=== PATIENT | male | born 1950 | race Caucasian/White ===

== ENCOUNTER → 2017-03-14 | Outpatient (CLI) | payer MEDICARE ==
[2017-03-14 14:32] LABS: BLOOD GAS BASE EXCESS 0.4 mmol/L (-2-2); BLOOD GAS CARBOXYHEMOGLOBIN 1.7 % (0-4); BLOOD GAS HCO3 25 mmol/L (22-26); BLOOD GAS METHEMOGLOBIN 1.3 % (0-2); BLOOD GAS O2 HGB SATURATION 93 % (90-100); BLOOD GAS OXYGEN CONTENT 16.2 Vol % (12.0-20.0); BLOOD GAS PCO2 45 mmHg (38-42); BLOOD GAS PO2 87 mmHg (61-120); BLOOD GAS TOTAL HGB 12.3 G/DL (12.0-16.0); CRITICAL VALUE NO; DRAW SITE RT RADIAL; FIO2 21 %; NUMBER OF ARTERIAL PUNCTURES 1; STAT NO; TEMP CORR TO 98.6; ULNAR PULSE PRESENT
--- NOTE | 2017-03-19 09:43 | RSPPFT ---
DATE OF PROCEDURE: 03/14/17 COMMENTS: Spirometry with FVC of 3.4 predicted 4.7, FEV1 of 2.9 predicted 3.1, FEV1/FVC ratio 86% predicted 67%. Lung volumes are decreased with TLC at 5.0 predicted 7.3. DLCO is 53% of predicted. IMPRESSION: On the basis of the above, patient has a restrictive lung defect with decreased DLCO.
== END ==
LOC: HRSP 13:16
PROVIDERS: ATTEND Internal Medicine Pulmonary Disease
DX: J84.10 Pulmonary fibrosis, unspecified (principal)
CPT/HCPCS: 36600; 82805; 94060; 94620; 94726; 94729

== ENCOUNTER 2017-04-24 11:02 | Inpatient (IN) | payer MEDICARE ==
[~2017-04-24] VITALS: Ht 182.9 cm; Wt 85.4 kg
[2017-04-24 11:18] VITALS: BP 110/70; PULSE 94; RESP 20; TEMP 97.7; O2SAT 93
[2017-04-24] MEDS ORDERED: VANCOMYCIN INJ 1,000 MG in SODIUM CHLOR 0.9% 250 ML INJ 250 ML IV STA (12:00)
[2017-04-24] MEDS ORDERED: SODIUM CHLOR 0.9% 1000 ML INJ 1,000 ML IV ONE (12:00)
[2017-04-24] MEDS ORDERED: PIPERACIL-TAZO 4.5 GM PREMIX 100 ML IV STA (12:00)
--- NOTE | 2017-04-24 12:09 | PD ---
HPI Chief Complaint: Skin Problem Time Seen by Provider: 12:08 Travel History International Travel<30 days: No Contact w/Intl Traveler<30days: No Traveled to known affect area: No History of Present Illness HPI Patient is a 66-year-old male presenting to emergency evaluation of left foot swelling and redness. Patient states his ongoing for 4 days, Saturday he went to his primary care provider and was prescribed doxycycline and amoxicillin which he has been compliant with. The area was marked and the erythema has spread beyond the marked borders. Last night a blister erupted over the third MTP swelling and redness has spread to the ankle. Patient reports 8 out of 10 pain. He described his pain as aching and throbbing. Patient has a past medical history significant for type 2 diabetes, pulmonary fibrosis, coronary artery disease with stent placed. He was seen and evaluated by Dr. Greene on Saturday. He has seen Dr. Figueroa in the past for a toe fungus. PFSH Past Medical History Coronary Artery Disease: Yes (with stent placement) Diabetes: Yes Respiratory: Yes (pulmonary fibrosis) Past Surgical History Other Surgery: Yes (back surgery) Social History Alcohol Use: Yes (rarely) Tobacco Use: No Substance Use: No Allergies-Medications (Allergen,Severity, Reaction): Coded Allergies: No Known Allergies (Unverified , 04/24/17) Reported Meds & Prescriptions Reported Meds & Active Scripts Active Reported Metformin (Metformin HCl) 1,000 Mg Tab 1,000 Mg PO BIDPC With meals Amoxicillin-Clavulanate 875-125 mg Tab 875 Mg PO BID not for use in CrCl <30 mL/minute Lamotrigine 150 Mg Tab 150 Mg PO DAILY [place] (Hydrocodone-Acetaminophen) 10-325 Mg Tab 1 Tab PO Q4H PRN Pioglitazone (Pioglitazone HCl) 15 Mg Tab 15 Mg PO DAILY Citalopram (Citalopram Hydrobromide) 40 Mg Tab 40 Mg PO DAILY Allopurinol 100 Mg Tab 200 Mg PO DAILY Review of Systems Except as stated in HPI: all other systems reviewed are Neg Musculoskeletal: Positive: Edema, Pain Skin: Positive Change in Pigmentation, Positive Lesions Physical Exam Narrative GENERAL: Well-developed, well-nourished, alert elderly gentleman. Resting comfortably in no acute distress. SKIN: Warm and dry. Erythema, warmth, induration to left foot and ankle. There is a 1.5 cm blister to the dorsal aspect of the left foot adjacent to the third MTP. On the plantar aspect of the left foot there is a discoloration and tenderness. Thickened, yellow toe nails. HEAD: Atraumatic. Normocephalic. EYES: Pupils equal and round. No scleral icterus. No injection or drainage. ENT: No nasal bleeding or discharge. Mucous membranes pink and moist. NECK: Trachea midline. No JVD. CARDIOVASCULAR: Regular rate and rhythm. RESPIRATORY: No accessory muscle use. Clear to auscultation. Breath sounds diminished bilaterally. GASTROINTESTINAL: Abdomen soft, non-tender, nondistended. Hepatic and splenic margins not palpable. MUSCULOSKELETAL: Extremities without clubbing, cyanosis. No obvious deformities. NEUROLOGICAL: Awake and alert. No obvious cranial nerve deficits. Motor grossly within normal limits. Five out of 5 muscle strength in the arms and legs. Normal speech. PSYCHIATRIC: Appropriate mood and affect; insight and judgment normal. Data Data Last Documented VS Vital Signs Date Time Temp Pulse Resp B/P Pulse Ox O2 Delivery O2 Flow Rate FiO2 04/24/17 14:05 97.9 81 16 161/94 98 Room Air Orders Electrocardiogram (04/24/17 12:00) Complete Blood Count With Diff (04/24/17 12:00) Comprehensive Metabolic Panel (04/24/17 12:00) Prothrombin Time / Inr (Pt) (04/24/17 12:00) Act Partial Throm Time (Ptt) (04/24/17 12:00) Lactic Acid Sepsis Protocol (04/24/17 12:00) Magnesium (Mg) (04/24/17 12:00) Urinalysis - C+S If Indicated (04/24/17 12:00) Blood Culture (04/24/17 12:00) Wound Culture And Gram Stain (04/24/17 12:00) Chest, Single Ap (04/24/17 12:00) Blood Glucose (04/24/17 12:00) Ecg Monitoring (04/24/17 12:00) Iv Access Insert/Monitor (04/24/17 12:00) Oximetry (04/24/17 12:00) Oxygen Administration (04/24/17 12:00) Piperacil-Tazo 4.5 Gm Premix (Zosyn 4.5 (04/24/17 12:00) Vancomycin Inj (Vancomycin Inj) (04/24/17 12:00) Sodium Chlor 0.9% 1000 Ml Inj (Ns 1000 M (04/24/17 12:00) Westergren Sedimentation Rate (04/24/17 12:02) C-Reactive Protein (Crp) (04/24/17 12:02) Morphine Inj (Morphine Inj) (04/24/17 12:15) Ondansetron Inj (Zofran Inj) (04/24/17 12:15) Mri Foot W&W/O Contrast (04/24/17 ) Ketorolac Inj (Toradol Inj) (04/24/17 14:00) Insulin Aspart Supplemtl Scale (Novolog (04/24/17 16:00) Admit To Inpatient (04/24/17 ) Code Status (04/24/17 14:42) Vital Signs (Adult) Q4H (04/24/17 14:42) Activity Oob With Assistance (04/24/17 14:42) Diet 1800 Ada Cons Carb (04/24/17 Dinner) Sodium Chloride 0.9% Flush (Ns Flush) (04/24/17 14:45) Sodium Chloride 0.9% Flush (Ns Flush) (04/24/17 21:00) Acetaminophen (Tylenol) (04/24/17 14:45) Ondansetron Inj (Zofran Inj) (04/24/17 14:45) Temazepam (Restoril) (04/24/17 14:45) Basic Metabolic Panel (Bmp) (04/25/17 06:00) Complete Blood Count With Diff (04/25/17 06:00) Electrocardiogram (04/24/17 14:42) Pt Request For Service (04/24/17 14:42) Enoxaparin Inj (Lovenox Inj) (04/24/17 14:45) Naloxone Inj (Narcan Inj) (04/24/17 14:45) Magnesium Hydroxide Liq (Milk Of Magnesi (04/24/17 14:45) Inpatient Certification (04/24/17 ) Acetamin-Hydrocod 325-5 Mg ([place] 5-325 (04/24/17 14:45) Hydromorphone Pf Inj (Dilaudid Pf Inj) (04/24/17 14:45) Vancomycin Inj (Vancomycin Inj) (04/25/17 01:00) Piperacil-Tazo 3.375 Gm Premix (Zosyn 3. (04/24/17 18:00) Allopurinol (Zyloprim) (04/25/17 09:00) Citalopram (Celexa) (04/25/17 09:00) Lamotrigine (Lamictal) (04/25/17 09:00) Metformin (Glucophage) (04/24/17 18:00) Consult Podiatry (04/24/17 ) Admit Order (Ed Use Only) (04/24/17 14:51) Labs Laboratory Tests Test 04/24/17 04/24/17 12:20 12:26 White Blood Count 14.2 TH/MM3 Red Blood Count 4.12 MIL/MM3 Hemoglobin 13.1 GM/DL Hematocrit 39.3 % Mean Corpuscular Volume 95.3 FL Mean Corpuscular Hemoglobin 31.7 PG Mean Corpuscular Hemoglobin 33.3 % Concent Red Cell Distribution Width 13.3 % Platelet Count 200 TH/MM3 Mean Platelet Volume 8.6 FL Neutrophils (%) (Auto) 81.9 % Lymphocytes (%) (Auto) 12.3 % Monocytes (%) (Auto) 4.8 % Eosinophils (%) (Auto) 0.7 % Basophils (%) (Auto) 0.3 % Neutrophils # (Auto) 11.6 TH/MM3 Lymphocytes # (Auto) 1.8 TH/MM3 Monocytes # (Auto) 0.7 TH/MM3 Eosinophils # (Auto) 0.1 TH/MM3 Basophils # (Auto) 0.0 TH/MM3 CBC Comment DIFF FINAL Differential Comment Erythrocyte Sedimentation Rate 49 mm/hr Prothrombin Time 11.4 SEC Prothromb Time International 1.0 RATIO Ratio Activated Partial 32.4 SEC Thromboplast Time Sodium Level 132 MEQ/L Potassium Level 4.2 MEQ/L Chloride Level 97 MEQ/L Carbon Dioxide Level 28.3 MEQ/L Anion Gap 7 MEQ/L Blood Urea Nitrogen 24 MG/DL Creatinine 1.30 MG/DL Estimat Glomerular Filtration 55 ML/MIN Rate Random Glucose 118 MG/DL Calcium Level 9.8 MG/DL Magnesium Level 1.5 MG/DL Total Bilirubin 0.6 MG/DL Aspartate Amino Transf 22 U/L (AST/SGOT) Alanine Aminotransferase 28 U/L (ALT/SGPT) Alkaline Phosphatase 88 U/L C-Reactive Protein 28.00 MG/DL Total Protein 8.4 GM/DL Albumin 3.5 GM/DL Lactic Acid Level 2.0 mmol/L MDM Medical Decision Making Medical Screen Exam Complete: Yes Emergency Medical Condition: Yes Interpretation(s) Last Impressions Chest X-Ray 04/24/17 1200 Signed Impressions: Service Date/Time: Monday, April 24, 2017 12:46 - CONCLUSION: Diffuse interstitial lung disease worse in the lung bases. Kuldeep Garrison MD Laboratory Tests Test 04/24/17 04/24/17 12:20 12:26 White Blood Count 14.2 TH/MM3 Red Blood Count 4.12 MIL/MM3 Hemoglobin 13.1 GM/DL Hematocrit 39.3 % Mean Corpuscular Volume 95.3 FL Mean Corpuscular Hemoglobin 31.7 PG Mean Corpuscular Hemoglobin 33.3 % Concent Red Cell Distribution Width 13.3 % Platelet Count 200 TH/MM3 Mean Platelet Volume 8.6 FL Neutrophils (%) (Auto) 81.9 % Lymphocytes (%) (Auto) 12.3 % Monocytes (%) (Auto) 4.8 % Eosinophils (%) (Auto) 0.7 % Basophils (%) (Auto) 0.3 % Neutrophils # (Auto) 11.6 TH/MM3 Lymphocytes # (Auto) 1.8 TH/MM3 Monocytes # (Auto) 0.7 TH/MM3 Eosinophils # (Auto) 0.1 TH/MM3 Basophils # (Auto) 0.0 TH/MM3 CBC Comment DIFF FINAL Differential Comment Erythrocyte Sedimentation Rate 49 mm/hr Prothrombin Time 11.4 SEC Prothromb Time International 1.0 RATIO Ratio Activated Partial 32.4 SEC Thromboplast Time Sodium Level 132 MEQ/L Potassium Level 4.2 MEQ/L Chloride Level 97 MEQ/L Carbon Dioxide Level 28.3 MEQ/L Anion Gap 7 MEQ/L Blood Urea Nitrogen 24 MG/DL Creatinine 1.30 MG/DL Estimat Glomerular Filtration 55 ML/MIN Rate Random Glucose 118 MG/DL Calcium Level 9.8 MG/DL Magnesium Level 1.5 MG/DL Total Bilirubin 0.6 MG/DL Aspartate Amino Transf 22 U/L (AST/SGOT) Alanine Aminotransferase 28 U/L (ALT/SGPT) Alkaline Phosphatase 88 U/L C-Reactive Protein 28.00 MG/DL Total Protein 8.4 GM/DL Albumin 3.5 GM/DL Lactic Acid Level 2.0 mmol/L Vital Signs Date Time Temp Pulse Resp B/P Pulse Ox O2 Delivery O2 Flow Rate FiO2 04/24/17 11:18 97.7 94 20 110/70 93 Room Air Differential Diagnosis Cellulitis versus sepsis versus osteomyelitis versus metabolic abnormality versus other Narrative Course Patient is a 66-year-old male presenting for evaluation of cellulitis left foot after failing outpatient antibiotic therapy. Area was marked by primary doctor there is significant erythema and induration extending past that border. Patient remains neurovascularly intact. There was a large bullous lesion to the dorsal aspect of the left foot, wound culture obtained. Labs and imaging ordered and pending. Patient's vital signs are stable. is at bedside. Medications ordered for pain relief. CBC with a mild leukocytosis with left shift. Sedimentation rate 49 Lactic acid 2.0 CRP 28 Chemistry BUN of 24, no acute abdomen is identified Chest x-ray shows diffuse interstitial lung disease, worse in the bases. Vancomycin and Zosyn ordered. MRI of the foot is pending. Dr. Vallejo accepted admit, orders placed. Sepsis Criteria SIRS Criteria (2 or more): Heart rate over 90, WBC > 94454, < 4000 or > 10% bands Criteria Outcome: Meets SIRS criteria Diagnosis Primary Impression: Cellulitis of left foot Additional Impression: Diabetic foot ulcer Qualified Code: E11.621 - Diabetic ulcer of left foot associated with type 2 diabetes mellitus, unspecified part of foot, unspecified ulcer stage Admitting Information Admitting Physician Requests: Admit Condition: Stable Ansley Becerril Apr 24, 2017 12:08
[2017-04-24] MEDS ORDERED: ONDANSETRON HCL 4 MG/2 ML VIAL IV PUSH ONE (12:15)
[2017-04-24] MEDS ORDERED: MORPHINE SULFATE 4 MG/ML INJ IV PUSH ONE (12:15)
[2017-04-24 12:20] VITALS: RESP 16; O2SAT 99
[2017-04-24] MEDS ORDERED: AMOX875T2 PO (12:44)
[2017-04-24] MEDS ORDERED: ALLO100T PO (12:44)
[2017-04-24] MEDS ORDERED: HYDR-3366 PO (12:44)
[2017-04-24] MEDS ORDERED: CITA40TA4 PO (12:44)
[2017-04-24] MEDS ORDERED: LAMO150T PO (12:44)
[2017-04-24] MEDS ORDERED: PIOG15TA5 PO (12:44)
[2017-04-24] MEDS ORDERED: METF1000 PO (12:46)
[2017-04-24 12:50] LABS: AUTOMATED NEUTROPHIL # 11.6 TH/MM3 (1.8-7.7); BASOPHIL % 0.3 % (0.0-2.0); EOSINOPHIL # 0.1 TH/MM3 (0-0.4); EOSINOPHIL % 0.7 % (0.0-4.0); HEMATOCRIT 39.3 % (39.0-51.0); HEMO FLAGS DIFF FINAL; LYMPH % 12.3 % (9.0-44.0); LYMPHOCYTE # 1.8 TH/MM3 (1.0-4.8); MEAN CELL VOLUME 95.3 FL (80.0-100.0); MEAN CORPUSCULAR HEMOGLOBIN 31.7 PG (27.0-34.0); MEAN CORPUSCULAR HGB CONC 33.3 % (32.0-36.0); MONO % 4.8 % (0.0-8.0); NEUT % 81.9 % (16.0-70.0); PLATELET COUNT 200 TH/MM3 (150-450); RED BLOOD COUNT 4.12 MIL/MM3 (4.50-5.90); RED CELL DISTRIBUTION WIDTH 13.3 % (11.6-17.2); WHITE BLOOD COUNT 14.2 TH/MM3 (4.0-11.0)
[2017-04-24 12:58] LABS: APTT (PATIENT) 32.4 SEC (24.3-30.1); PROTHROMBIN TIME - PATIENT 11.4 SEC (9.8-11.6)
--- NOTE | 2017-04-24 13:24 | RADRPT ---
EXAM DATE/TIME: 04/24/2017 12:46 [facility] COMPARISON: No previous studies available for comparison. INDICATIONS : Short of breath with wheezing. MEDICAL HISTORY : Fibrosis SURGICAL HISTORY : Right lung biopsy ENCOUNTER: Initial ACUITY: 1 day PAIN SCORE: 0/10 LOCATION: Bilateral chest FINDINGS: A single view of the chest demonstrates the lungs to be symmetrically aerated without evidence of mas s, infiltrate or effusion. Diffuse interstitial lung disease worse in the lung bases. The cardiomedia stinal contours are unremarkable. Osseous structures are intact. CONCLUSION: Diffuse interstitial lung disease worse in the lung bases. Kuldeep Garrison MD on April 24, 2017 at 13:22 Board Certified Radiologist. This report was verified electronically.
[2017-04-24 13:43] LABS: ANION GAP 7 MEQ/L (5-15); AST (GOT) 22 U/L (15-37); BICARBONATE 28.3 MEQ/L (21.0-32.0); BLOOD UREA NITROGEN 24 MG/DL (7-18); CHLORIDE 97 MEQ/L (98-107); GLOMERULAR FILTRATION RATE 55 ML/MIN (>89); MAGNESIUM 1.5 MG/DL (1.5-2.5); POTASSIUM 4.2 MEQ/L (3.5-5.1); SODIUM (NA) 132 MEQ/L (136-145)
[2017-04-24 13:49] LABS: ALKALINE PHOSPHATASE 88 U/L (45-117); ALT (GPT) 28 U/L (12-78); TOTAL BILIRUBIN ADULT 0.6 MG/DL (0.2-1.0)
[2017-04-24] MEDS ORDERED: KETOROLAC TROMETHAMINE 30 MG/ML (IVP) VIAL IV PUSH ONE (14:00)
[2017-04-24 14:05] VITALS: BP 161/94; PULSE 81; RESP 16; TEMP 97.9; O2SAT 98
[2017-04-24] MEDS ORDERED: ONDANSETRON HCL 4 MG/2 ML VIAL IVP PRN (14:45)
[2017-04-24] MEDS ORDERED: NALOXONE HCL 0.4 MG/ML AMP IV PRN (14:45)
[2017-04-24] MEDS ORDERED: ACETAMINOPHEN/HYDROcodone 325 MG/5 MG TAB PO PRN (14:45)
[2017-04-24] MEDS ORDERED: ACETAMINOPHEN 325 MG TAB PO PRN (14:45)
[2017-04-24] MEDS ORDERED: MAGNESIUM HYDROXIDE SUSP 30 ML CUP PO PRN (14:45)
[2017-04-24] MEDS ORDERED: Vancomycin Consult Pharmacy 1 EA OTHER SCH (15:45)
[2017-04-24 15:51] VITALS: BP 152/86; TEMP 97.8
[2017-04-24] MEDS: INSULIN ASPART SUPPLEMENTAL SCALE SQ SCH ×2 (16:00→21:00)
[2017-04-24] MEDS ORDERED: PILL SPLITTER OTHER PRN (16:15)
[2017-04-24] MEDS ORDERED: GADODIAMIDE PF 287 MG/ML 5 ML VIAL (for RAD MRI) IV ONE (16:25)
[2017-04-24 16:30] VITALS: BP 151/94; PULSE 83; RESP 16; TEMP 97.7; O2SAT 97
[2017-04-24] MEDS ORDERED: DEXTROSE 50% IN WATER 50 ML VIAL(D50) IV PUSH PRN (16:30)
[2017-04-24] MEDS ORDERED: GLUCAGON 1 MG/ML VIAL OTHER PRN (16:30)
--- NOTE | 2017-04-24 16:32 | RADRPT ---
EXAM DATE/TIME: 04/24/2017 14:20 [facility] COMPARISON: No previous studies available for comparison. INDICATIONS : Foot pain. Osteomyelitis. Wound top of foot below 3rd and 4th toes. CONTRAST: 15 cc Omniscan (Gadodiamide) IV MEDICAL HISTORY : Diabetes mellitus type 2. SURGICAL HISTORY : Coronary artery stent. Discectomy, lumbar. ENCOUNTER: Initial ACUITY: 3 day PAIN SCORE: 3/10 LOCATION: Left Foot TECHNIQUE: Multiplanar, multisequence MRI examination was performed without contrast and after the intravenous a dministration of gadolinium. FINDINGS: MRI of the left foot was performed with and without contrast. Dorsal to the 2nd and 3rd metatarsal shafts, there is an elongated fluid collection possibly originat ing from the intermetatarsal bursa. The lobulated collection extends for 4.6 cm in length and 2.1 x 2.7 cm across. It is some fluid dense signal intensity on the T2 and IR images. There is marked keven rounding enhancement suggesting inflammation and possible infection. There is low signal on the T1 postcontrast images including the entire dorsum of the foot from the mi dline of the 2nd MTP joint laterally to the soft tissue under the 5th metatarsal region. It is not e xactly fluid on the T2 images but the lack of enhancement raises the possibility of diabetic necrosis . The underlying bone is actually not that abnormal. There is low grade bone edema in the 2nd and 3 rd proximal phalangeal bones without any obvious cortical erosion. There is a bilobed intermetatarsal bursa between the 2nd and 3rd metatarsal necks measuring 2.3 x 0.6 cm across. There is marked dorsal soft tissue swelling across the foot. The extensor tendons are intact. The f lexor tendons are intact. There is some low grade plantar muscular edema throughout the foot. CONCLUSION: Large multi-loculated fluid collection primarily in the dorsum of the foot dorsum to the 2nd and 3rd metatarsal heads and MTP joints. It probably extends from an intermetatarsal bursa. The area is mos tly fluid signal with non-enhancement suspicious for possible abscess formation. What is also concer jean pierre is the lack of enhancement in the plantar soft tissues underneath the 3rd, 4th and 5th metatarsa l heads and MTP joints. It can be seen in patients with diabetic necrosis. There is a small area in the medial plantar aspect of the foot. Very impressive soft tissue enhancement and edema. Kuldeep Garrison MD on April 24, 2017 at 16:22 Board Certified Radiologist. This report was verified electronically.
[2017-04-24] MEDS: ENOXAPARIN SODIUM 30 MG/0.3 ML SYRINGE SQ SCH (18:34)
[2017-04-24] MEDS: metFORMIN HCL 500 MG TAB PO SCH (18:34)
[2017-04-24] MEDS: HYDROmorphone HCL PF 1 MG/ML VIAL IV PUSH PRN (18:35)
[2017-04-24 20:00] VITALS: BP 161/83; PULSE 88; RESP 16; TEMP 98.3; O2SAT 97
[2017-04-24] MEDS ORDERED: TEMAZEPAM 15 MG CAP PO PRN (21:00)
--- NOTE | 2017-04-24 21:24 | HHI.HP ---
HPI Service [facility] Hospitalists Primary Care Physician Katherin Greene MD Admission Diagnosis left foot cellulitis, rule out osteomyelitis Chief Complaint: increasing pain and swelling left foot Travel History International Travel<30 Days: No Contact w/Intl Traveler <30 Da: No Traveled to Known Affected Are: No Sepsis Criteria SIRS Criteria (2 or more): WBC > 06502, < 4000 or > 10% bands History of Present Illness Patient is a 66-year-old male presenting to emergency evaluation of left foot swelling and redness. Patient states his ongoing for 4 days, Saturday he went to his primary care provider and was prescribed doxycycline and amoxicillin which he has been compliant with. The area was marked and the erythema has spread beyond the marked borders. Last night a blister erupted over the third MTP swelling and redness has spread to the ankle. Patient reports 8 out of 10 pain. He described his pain as aching and throbbing. Patient has a past medical history significant for type 2 diabetes, pulmonary fibrosis, coronary artery disease with stent placed. He was seen and evaluated by Dr. Greene on Saturday. He has seen Dr. Figueroa in the past for a toe fungus. Patient started on IV antibiotics mri ordered and consult ID and podiatry. Review of Systems Musculoskeletal: COMPLAINS OF: Joint pain, Joint Swelling Past Family Social History Past Medical History cad,dm,pulmonary fibrosis Past Surgical History back surgery Reported Medications Metformin (Metformin HCl) 1,000 Mg Tab 1,000 Mg PO BIDPC With meals Amoxicillin-Clavulanate 875-125 mg Tab 875 Mg PO BID not for use in CrCl <30 mL/minute Lamotrigine 150 Mg Tab 150 Mg PO DAILY [place] (Hydrocodone-Acetaminophen) 10-325 Mg Tab 1 Tab PO Q4H PRN Pioglitazone (Pioglitazone HCl) 15 Mg Tab 15 Mg PO DAILY Citalopram (Citalopram Hydrobromide) 40 Mg Tab 40 Mg PO DAILY Allopurinol 100 Mg Tab 200 Mg PO DAILY Allergies: Coded Allergies: No Known Allergies (Unverified , 04/24/17) Social History occ etoh Physical Exam Vital Signs Vital Signs Date Time Temp Pulse Resp B/P Pulse Ox O2 Delivery O2 Flow Rate FiO2 04/24/17 20:00 98.3 88 16 161/83 97 04/24/17 16:30 97.7 83 16 151/94 97 7/19/17 15:51 97.8 81 16 152/86 99 04/24/17 15:01 17 04/24/17 14:05 97.9 81 16 161/94 98 Room Air 04/24/17 12:26 16 04/24/17 12:20 86 16 04/24/17 12:20 16 99 Room Air 04/24/17 12:20 99 Room Air 04/24/17 11:18 97.7 94 20 110/70 93 Room Air Physical Exam GENERAL: This is a well-nourished, well-developed patient, in no apparent distress. SKIN: No rashes, ecchymoses or lesions. Cool and dry.Warm and dry. Erythema, warmth, induration to left foot and ankle. There is a 1.5 cm blister to the dorsal aspect of the left foot adjacent to the third MTP. On the plantar aspect of the left foot there is a discoloration and tenderness HEAD: Atraumatic. Normocephalic. No temporal or scalp tenderness. EYES: Pupils equal round and reactive. Extraocular motions intact. No scleral icterus. No injection or drainage. ENT: Nose without bleeding, purulent drainage or septal hematoma. Throat without erythema, tonsillar hypertrophy or exudate. Uvula midline. Airway patent. NECK: Trachea midline. No JVD or lymphadenopathy. Supple, nontender, no meningeal signs. CARDIOVASCULAR: Regular rate and rhythm without murmurs, gallops, or rubs. RESPIRATORY: Clear to auscultation. Breath sounds equal bilaterally. No wheezes , rales, or rhonchi. GASTROINTESTINAL: Abdomen soft, non-tender, nondistended. No hepato-splenomegaly , or palpable masses. No guarding. MUSCULOSKELETAL: Extremities without clubbing, cyanosis, or edema. No joint tenderness, effusion, or edema noted. No calf tenderness. Negative Homans sign bilaterally. NEUROLOGICAL: Awake and alert. Cranial nerves II through XII intact. Motor and sensory grossly within normal limits. Five out of 5 muscle strength in all muscle groups. Normal speech. Laboratory Laboratory Tests Test 04/24/17 04/24/17 12:20 12:26 White Blood Count 14.2 Red Blood Count 4.12 Hemoglobin 13.1 Hematocrit 39.3 Mean Corpuscular Volume 95.3 Mean Corpuscular Hemoglobin 31.7 Mean Corpuscular Hemoglobin 33.3 Concent Red Cell Distribution Width 13.3 Platelet Count 200 Mean Platelet Volume 8.6 Neutrophils (%) (Auto) 81.9 Lymphocytes (%) (Auto) 12.3 Monocytes (%) (Auto) 4.8 Eosinophils (%) (Auto) 0.7 Basophils (%) (Auto) 0.3 Neutrophils # (Auto) 11.6 Lymphocytes # (Auto) 1.8 Monocytes # (Auto) 0.7 Eosinophils # (Auto) 0.1 Basophils # (Auto) 0.0 CBC Comment DIFF FINAL Differential Comment Erythrocyte Sedimentation Rate 49 Prothrombin Time 11.4 Prothromb Time International 1.0 Ratio Activated Partial 32.4 Thromboplast Time Sodium Level 132 Potassium Level 4.2 Chloride Level 97 Carbon Dioxide Level 28.3 Anion Gap 7 Blood Urea Nitrogen 24 Creatinine 1.30 Estimat Glomerular Filtration 55 Rate Random Glucose 118 Calcium Level 9.8 Magnesium Level 1.5 Total Bilirubin 0.6 Aspartate Amino Transf 22 (AST/SGOT) Alanine Aminotransferase 28 (ALT/SGPT) Alkaline Phosphatase 88 C-Reactive Protein 28.00 Total Protein 8.4 Albumin 3.5 Lactic Acid Level 2.0 Date/Time Procedure Status Source Growth 04/24/17 17:45 Gram Stain Received Abscess Foot Pending 04/24/17 17:45 Wound Culture Received Abscess Foot Pending 04/24/17 12:26 Aerobic Blood Culture Received Blood Peripheral Pending 04/24/17 12:26 Anaerobic Blood Culture Received Blood Peripheral Pending Result Diagram: 04/24/17 1220 04/24/17 1220 Imaging Last 24 hours Impressions Chest X-Ray 04/24/17 1200 Signed Impressions: Service Date/Time: Monday, April 24, 2017 12:46 - CONCLUSION: Diffuse interstitial lung disease worse in the lung bases. Kuldeep Garrison MD Foot MRI 04/24/17 0000 Signed Impressions: Service Date/Time: Monday, April 24, 2017 14:20 - CONCLUSION: Large multi-loculated fluid collection primarily in the dorsum of the foot dorsum to the 2nd and 3rd metatarsal heads and MTP joints. It probably extends from an intermetatarsal bursa. The area is mostly fluid signal with non-enhancement suspicious for possible abscess formation. What is also concerning is the lack of enhancement in the plantar soft tissues underneath the 3rd, 4th and 5th metatarsal heads and MTP joints. It can be seen in patients with diabetic necrosis. There is a small area in the medial plantar aspect of the foot. Very impressive soft tissue enhancement and edema. Kuldeep Garrison MD Course in er started on iv antibiotics Assessment and Plan Problem List: (1) Abscess Status: Acute Plan: as per MRI will need prable surgery continue vancomycin and zoysn (2) Diabetic foot ulcer Status: Acute Plan: as above (3) Cellulitis of left foot Status: Acute Plan: antibiotics as above ID consult Assessment and Plan further plan as case develops Code Status full Discussed Condition With patient Physician Certification 2 Midnight Certification Type: Admission for Inpatient Services Order for Inpatient Services The services are ordered in accordance with Medicare regulations or non- Medicare payer requirements, as applicable. In the case of services not specified as inpatient-only, they are appropriately provided as inpatient services in accordance with the 2-midnight benchmark. Estimated LOS (days): 3 3 days is the estimated time the patient will need to remain in the hospital, assuming treatment plan goals are met and no additional complications. Post-Hospital Plan: Not yet determined Problem Qualifiers (1) Diabetic foot ulcer: Qualified Code: E11.621 - Diabetic ulcer of left foot associated with type 2 diabetes mellitus, unspecified part of foot, unspecified ulcer stage Lorenzo Delgado MD Apr 24, 2017 21:24
[2017-04-24] MEDS: VANCOMYCIN INJ 1,750 MG in SODIUM CHLORID 0.9% 500 ML INJ 500 ML IV SCH (22:39)
[2017-04-24] MEDS: PIPERACIL-TAZO 3.375 GM PREMIX 50 ML IV SCH (22:39)
[2017-04-24] MEDS: SODIUM CHLORIDE 0.9% FLUSH 10 ML FLUSH IV FLUSH SCH (22:40)
--- NOTE | 2017-04-24 22:46 | MB ---
cc: CELIA GARDINER DPM DATE OF CONSULTATION 04/24/2017 REASON FOR CONSULTATION Left foot diabetic infection, abscess. HISTORY OF PRESENT ILLNESS This is a 66-year-old male who is being treated by his primary care doctor approximately one week. Had start of erythema. It appeared that he had a blister formed last night and severe spreading of swelling up to the level of the ankle and significant pain. The patient does not describe any obvious puncture wound, however upon examining it appears the patient has an area on the plantar aspect of the foot that resembles a puncture wound. He does admit he walks with sandals. PAST MEDICAL HISTORY 1. Stent placement. 2. Diabetes. 3. Pulmonary fibrosis. PAST SURGICAL HISTORY Other past surgical history: Back, unspecified. SOCIAL HISTORY Alcohol rarely. No habits noted. ALLERGIES None listed. MEDICATIONS Outpatient medications: 1. Amoxicillin per the patient's . 2. Doxycycline. 3. Also metformin. 4. [place]. 5. Pioglitazone. 6. Citalopram. 7. Allopurinol. Inpatient medications the patient is receiving: Vancomycin and Zosyn. Please see complete med list in chart. PHYSICAL EXAMINATION VITAL SIGNS: Temperature 97.7, pulse rate 83, respiratory rate 16, blood pressure 151/94. He is sating 97% on room air. GENERAL: This is an alert and oriented gentleman seen bedside exhibiting nonlabored respirations. EXTREMITIES: Left lower extremity focused exam, there is a fluctuant, erythematous, severe edema of the dorsum of the foot. There is noted to be a small puncture wound at the second, third MPJ plantarly. There are hammertoes noted with deformity, contracture. Redness does extend beyond the ankle. No signs of soft tissue emphysema or gas gangrene. Pulses are hard to palpate through the edema but the foot does appear to be viable, warm, with good capillary fill time to the digits. Sensation decreased to light touch. Right lower extremity is free from any pathology with palpable pulses. LABORATORY FINDINGS White blood cell 14. Hemoglobin/hematocrit 13 and 39. Platelet count 200. ESR 49. Chem-7 sodium 132, potassium 4.2, chloride 97, CO2 28.3, BUN 24, creatinine 1.3, random glucose 118. AST 22, ALT 28. C-reactive protein 28. IMAGING Foot MRI is most consistent with abscess of the dorsum of the foot. There is some remarking regarding a multiloculated collection that extends possible from intermetatarsal bursa. There is concerning of lack of enhancement underneath the third and fourth MPJs that may correlate with diabetic necrosis. There is no mention of foreign body. There is no mention of significant edema, however, low grade edema as mentioned in the body at the second, third proximal phalangeal joint bones. Microbial findings, blood culture and wound culture pending. ASSESSMENT/PLAN Left diabetic foot infection, severe abscess with history of puncture wound. Upon reviewing with the patient he does not recall stepping on anything sharp, however, the clinical examination does warrant that there is likely a puncture wound that has caused this event possibly a week ago. The patient admits wearing sandals and poorly protective shoe gear. The patient just had dinner. The patient now cannot have surgery for 8 hours unless deemed a true emergency. If we were to move forward with surgery at this point there is a high risk of aspiration and that would be detrimental to this patient with a history of pulmonary fibrosis. We devised a plan to move forward with a bedside incision and drainage. The patient's foot was prepped and draped in a sterile fashion. Verbal informed written consent took place. Utilizing sterile technique, an incision was made over the dorsal aspect of the foot where there was noted to be approximately 25 mL of purulent material that was released from the dorsum of the foot. This was then flushed open with normal saline and then packed, a bulky bandage placed and an Tommie wrap applied. I reviewed in great detail the patient needs a more involved incision and drainage with wound exploration to prevent the risk of limb loss or expansile loss of tissue of the dorsum of the foot. We will move forward with this within the next 12-24 hours. Risks and benefits explained of surgery. No guarantees given or implied regarding the outcome. The patient will likely need multiple debridements and at minimum antibiotics for a severe diabetic soft tissue infection. I recommend infectious disease consultation. I will see the patient tomorrow for surgery. The patient was ordered n.p.o. after midnight. ORLANDO Padilla/LASHONDA /5:58 PM /10:32 PM
[2017-04-25 00:29] VITALS: BP 158/95; PULSE 69; RESP 16; TEMP 98.3; O2SAT 100
[2017-04-25] MEDS: HYDROmorphone HCL PF 1 MG/ML VIAL IV PUSH PRN ×4 (00:54→22:17)
[2017-04-25] MEDS: SODIUM CHLORIDE 0.9% FLUSH 10 ML FLUSH IV FLUSH PRN ×3 (00:54→22:17)
[2017-04-25] MEDS ORDERED: VANCOMYCIN INJ 1,000 MG in SODIUM CHLOR 0.9% 250 ML INJ 250 ML IV SCH (01:00)
[2017-04-25 04:00] VITALS: BP 144/78; PULSE 70; RESP 16; TEMP 98.2; O2SAT 95
[2017-04-25] MEDS: PIPERACIL-TAZO 3.375 GM PREMIX 50 ML IV SCH ×3 (06:00→18:29)
[2017-04-25] MEDS: INSULIN ASPART SUPPLEMENTAL SCALE SQ SCH ×4 (06:09→20:56)
[2017-04-25 06:59] LABS: AUTOMATED NEUTROPHIL # 5.6 TH/MM3 (1.8-7.7); BASOPHIL % 0.5 % (0.0-2.0); EOSINOPHIL # 0.2 TH/MM3 (0-0.4); EOSINOPHIL % 2.7 % (0.0-4.0); HEMATOCRIT 33.3 % (39.0-51.0); HEMO FLAGS DIFF FINAL; LYMPH % 20.1 % (9.0-44.0); LYMPHOCYTE # 1.6 TH/MM3 (1.0-4.8); MEAN CELL VOLUME 95.5 FL (80.0-100.0); MEAN CORPUSCULAR HEMOGLOBIN 31.9 PG (27.0-34.0); MEAN CORPUSCULAR HGB CONC 33.4 % (32.0-36.0); MONO % 5.6 % (0.0-8.0); NEUT % 71.1 % (16.0-70.0); PLATELET COUNT 176 TH/MM3 (150-450); RED BLOOD COUNT 3.49 MIL/MM3 (4.50-5.90); RED CELL DISTRIBUTION WIDTH 13.3 % (11.6-17.2); WHITE BLOOD COUNT 7.9 TH/MM3 (4.0-11.0)
[2017-04-25 07:24] LABS: BICARBONATE 29.2 MEQ/L (21.0-32.0); POTASSIUM 4.1 MEQ/L (3.5-5.1)
[2017-04-25 08:00] VITALS: BP 165/85; PULSE 84; RESP 17; TEMP 98.4; O2SAT 96
[2017-04-25] MEDS: CITALOPRAM HYDROBROMIDE 40 MG TAB PO SCH (08:39)
[2017-04-25] MEDS: ALLOPURINOL 100 MG TAB PO SCH (08:39)
[2017-04-25] MEDS: SODIUM CHLORIDE 0.9% FLUSH 10 ML FLUSH IV FLUSH SCH ×2 (08:39→20:48)
[2017-04-25] MEDS: metFORMIN HCL 500 MG TAB PO SCH ×2 (08:40→18:28)
[2017-04-25] MEDS: lamoTRIgine 100 MG TAB PO SCH (11:51)
[2017-04-25 12:00] VITALS: BP 153/88; PULSE 80; RESP 17; TEMP 97.8; O2SAT 97
[2017-04-25] MEDS ORDERED: PROPOFOL 200 MG/20 ML AMP IV ONE (12:00)
[2017-04-25] MEDS ORDERED: ePHEDrine/NS 25 MG/5 ML SYR IV ONE (12:00)
--- NOTE | 2017-04-25 12:13 | HHI.PR ---
Subjective Remarks Pain is controlled Objective Vitals Vital Signs Date Time Temp Pulse Resp B/P Pulse Ox O2 Delivery O2 Flow Rate FiO2 04/25/17 08:00 98.4 84 17 165/85 96 04/25/17 04:00 98.2 70 16 144/78 95 04/25/17 00:29 98.3 69 16 158/95 100 04/25/17 00:00 Room Air 04/24/17 20:00 98.3 88 16 161/83 97 04/24/17 20:00 Room Air 04/24/17 16:30 97.7 83 16 151/94 97 04/24/17 15:51 97.8 81 16 152/86 99 04/24/17 15:01 17 04/24/17 14:05 97.9 81 16 161/94 98 Room Air 04/24/17 12:26 16 04/24/17 12:20 86 16 04/24/17 12:20 16 99 Room Air 04/24/17 12:20 99 Room Air 04/24/17 04/24/17 04/25/17 15:00 23:00 07:00 Intake Total 500 ml 0 ml Output Total 1000 ml 600 ml Balance -500 ml -600 ml Intake Oral 500 ml 0 ml Output Urine Total 1000 ml 600 ml Stool Total 0 ml # Bowel Movements 0 Result Diagram: 04/25/17 0628 04/25/17 0628 Imaging Last 24 hours Impressions Chest X-Ray 04/24/17 1200 Signed Impressions: Service Date/Time: Monday, April 24, 2017 12:46 - CONCLUSION: Diffuse interstitial lung disease worse in the lung bases. Kuldeep Garrison MD Foot MRI 04/24/17 0000 Signed Impressions: Service Date/Time: Monday, April 24, 2017 14:20 - CONCLUSION: Large multi-loculated fluid collection primarily in the dorsum of the foot dorsum to the 2nd and 3rd metatarsal heads and MTP joints. It probably extends from an intermetatarsal bursa. The area is mostly fluid signal with non-enhancement suspicious for possible abscess formation. What is also concerning is the lack of enhancement in the plantar soft tissues underneath the 3rd, 4th and 5th metatarsal heads and MTP joints. It can be seen in patients with diabetic necrosis. There is a small area in the medial plantar aspect of the foot. Very impressive soft tissue enhancement and edema. Kuldeep Garrison MD Objective Remarks GENERAL: This is a well-nourished, well-developed patient, in no apparent distress. CARDIOVASCULAR: Regular rate and rhythm without murmurs, gallops, or rubs. RESPIRATORY: Clear to auscultation. Breath sounds equal bilaterally. No wheezes , rales, or rhonchi. GASTROINTESTINAL: Abdomen soft, non-tender, nondistended. Normal active bowel sounds MUSCULOSKELETAL: Extremities without clubbing, cyanosis, or edema. NEURO: Alert & Oriented x4 to person, place, time, situation. Moves all ext x4 EXT: edema at left foot, erythema noted at dorsal aspect of left foot. A/P Problem List: (1) Abscess Status: Acute Plan: - MRI (04/24/17) --> abscess - bedside I&D performed by Dr. Shetty (04/26/17) - pt will require further debridement - await ID consult - Vancomycin & Zosyn - dilaudid prn pain/ norco prn (2) Diabetic foot ulcer Status: Acute Plan: - see above (3) DM2 (diabetes mellitus, type 2) Status: Chronic Plan: - metformin - SSI Problem Qualifiers (1) Diabetic foot ulcer: Qualified Code: E11.621 - Diabetic ulcer of left foot associated with type 2 diabetes mellitus, unspecified part of foot, unspecified ulcer stage (2) DM2 (diabetes mellitus, type 2): Héctor Vallejo DO Apr 25, 2017 12:13
[2017-04-25] MEDS: NIFEdipine 30 MG SUSTAINED RELEASE TAB PO SCH (13:53)
--- NOTE | 2017-04-25 14:50 | EKG ---
Date Performed: 04/24/2017 Time Performed: 12:33:18 PTAGE: 66 years EKG: Sinus rhythm WITH OCCASIONAL SUPRAVENTRICULAR PREMATURE COMPLEXES BORDERLINE ECG NO PREVIOUS TRACING DOCTOR: Magy Fischer Interpretating Date/Time 04/25/2017 14:49:25
--- NOTE | 2017-04-25 14:53 | EKG ---
Date Performed: 04/24/2017 Time Performed: 17:20:41 PTAGE: 66 years EKG: Sinus rhythm WITH SHORT SC INTERVAL VOLTAGE CRITERIA FOR LVH Anterior ST elevation, likely secondary to LVH and r epolarization abnormalities, however an acute injury pattern cannot be completely excluded. Clinical correlation is requested Compared to previous tracing, patient has new LVh and ST changes, potentiall y consistent with an acute injury pattern. ABNORMAL ECG PREVIOUS TRACING : 04/24/2017 12.33 DOCTOR: Magy Fischer Interpretating Date/Time 04/25/2017 14:52:00
[2017-04-25 16:00] VITALS: BP 152/82; PULSE 81; RESP 17; TEMP 98; O2SAT 97
[2017-04-25] MEDS: VANCOMYCIN INJ 1,750 MG in SODIUM CHLORID 0.9% 500 ML INJ 500 ML IV SCH (16:20)
[2017-04-25] MEDS ORDERED: FAMOTIDINE 20 MG/2 ML VIAL ONE (16:25)
[2017-04-25] MEDS ORDERED: MIDAZOLAM HCL 2 MG/2 ML VIAL ONE (16:25)
[2017-04-25] MEDS ORDERED: BUPIVACAINE HCL PF 0.25% 30 ML VIAL INFIL ONE (17:00)
[2017-04-25] MEDS ORDERED: NEOMYCIN/POLYMYXIN 1 ML G.U. IRRIGANT TOPICAL ONE (17:00)
[2017-04-25] MEDS ORDERED: DO NOT ADM ANY ANTICOAGULANT DRUGS PRN (17:38)
[2017-04-25] MEDS ORDERED: fentaNYL CITRATE 250 MCG/5 ML AMP ONE (17:42)
--- NOTE | 2017-04-25 17:46 | MB ---
cc: TAURUS GALLARDO MD DATE OF CONSULTATION: 04/25/[address] Vallejo. REASON FOR CONSULTATION: Diabetic foot ulcer. HISTORY OF PRESENT ILLNESS This is a 66-year-old white male who presented to the emergency department after he was seen by his primary physician for evaluation of left foot cellulitis. The patient was given doxycycline and amoxicillin, beginning the day after the redness was noted at the left foot. He did not lead to improvement and the erythema spreading up to around the ankle from the base of the toes. An MRI of the foot was performed and showed large multiloculated fluid collection, in the dorsum of the foot to the second and third metatarsal head and metatarsal phalangeal joint. The patient had limited bedside debridement yesterday and a culture was taken. The culture has group A beta strep. The patient is due to undergo incision and debridement of this afternoon. The white count was 12.4 yesterday and 87.9. The patient is afebrile. He notes that he has pain approximately a 4/10 scale currently. He notes also having headache which began yesterday evening. He has no fever, chills or other symptoms. PAST MEDICAL HISTORY 1. Pulmonary fibrosis 2. Diabetes mellitus type 2 3. Coronary artery disease 4. History of back surgery. ALLERGIES NO KNOWN DRUG ALLERGIES. MEDICATIONS 1. Allopurinol. 2. Celexa 3. Lamotrigine. 4. Vancomycin. 5. Piperacillin/Tazobactam. 6. Glucophage. 7. Lovenox 8. Dilaudid p.r.n. SOCIAL HISTORY The patient is . No tobacco. Rare alcohol use, no illicit drugs. FAMILY HISTORY: Noncontributory. REVIEW OF SYSTEMS Significant for pain in the left foot and headache. Otherwise negative on 10-point review. PHYSICAL EXAMINATION IN GENERAL: This is a pleasant well-developed male who is in no acute distress. He is awake and alert and oriented. VITAL SIGNS: Include temperature 97.8, Blood pressure 153/88, respirations 18, heart rate 80. HEAD, EYES, EARS, NOSE, AND THROAT: Extraocular movements grossly intact, pupils reactive to light. No icterus. Oropharynx no visible lesions. Moist mucosa. NECK: Supple without adenopathy or swelling. LUNGS: Has slight rhonchi bilaterally. HEART: Regular S1-S2 without murmurs, rubs or gallops. ABDOMEN: Bowel sounds present, soft, nontender. RECTUM: Rectal was not performed. EXTREMITIES: The left foot has severe erythema involving the base of the toes, particularly toes two through four area and spreading laterally towards the left lateral ankle and dorsally towards the anterior portion of the ankle. There is packing with in incised area at the base of toes two and three and slight purulent drainage on the dressing which was removed for inspection of the wound. The area is warm. There is also some erythema at the plantar aspect of the base of toes two and three. There is a tiny punctate dark spot at the area with the swelling in space of toes two and three, plantar aspect. SKIN: No diffuse rash. NEUROLOGIC: No gross focal findings. PSYCHIATRIC: The patient is calm and cooperative. LABORATORY DATA WBC 7.9, platelets 176, hemoglobin 11.1, sodium 138, creatinine 1.05, BUN 23, estimated glomerular filtration rate 70. IMPRESSION 1. Diabetic left foot infection. 2. Abscess of the left foot. 3. Cellulitis of the left foot. 4. Culture preliminary showing group A beta strep. RECOMMENDATIONS 1. Continue piperacillin/Tazobactam. 2. Continue vancomycin. 3. Await final culture results. 4. Monitor wound clinical response to antibiotic treatment. Thank for this consultation. I will follow the patient's progress along with you and will make further recommendations on followup. Taurus Gallardo MD FD/chary /1:21 PM /5:40 PM
--- NOTE | 2017-04-25 17:56 | HHI.PR ---
Immediate Post Op Note Procedure Date: Apr 25, 2017 Pre Op Diagnosis: left foot abscess, puncture wound, DM foot infection Post Op Diagnosis: same Surgeon: Fidel eHaton [employer] Operator(s): scrub Procedure: left foot incision drainage bone biopsy/incision bone cortex Findings: deep abscess with plantar tunnelling from puncture wound, possible bone involvement of the 2nd digit and 2nd metatarsal, good blow flow noted Complications: none Specimen(s) removed: bone from digit 2nd and from 2nd metatarsal for path, deep cx taken for bone Estimated blood loss: less than 100mL Anesthesia: General Drains: None, Other Fluids: see anesthesia IVF Tourniquet time (min at mmHg) none Patient to: PACU Patient Condition: Fair Implant/Devices: SEE IMPLANT LOG (if applicable) Date/Time of Procedure: SEE SURGICAL CARE RECORD Fidel Heaton DPM Apr 25, 2017 17:56
[2017-04-25] MEDS: ENOXAPARIN SODIUM 30 MG/0.3 ML SYRINGE SQ SCH (18:28)
[2017-04-25 20:00] VITALS: BP 143/70; PULSE 86; RESP 22; TEMP 98.2; O2SAT 99
[2017-04-26] VITALS (9 sets, daily range): BP systolic 134–166; BP diastolic 68–93; PULSE 62–86; RESP 18–20; TEMP 98–98.7; O2SAT 93–98
[2017-04-26] MEDS: HYDROmorphone HCL PF 1 MG/ML VIAL IV PUSH PRN ×3 (04:05→20:52)
[2017-04-26] MEDS: SODIUM CHLORIDE 0.9% FLUSH 10 ML FLUSH IV FLUSH PRN (04:06)
[2017-04-26] MEDS: PIPERACIL-TAZO 3.375 GM PREMIX 50 ML IV SCH ×3 (04:17→12:34)
[2017-04-26] MEDS: INSULIN ASPART SUPPLEMENTAL SCALE SQ SCH ×4 (05:54→20:50)
[2017-04-26] MEDS: NIFEdipine 30 MG SUSTAINED RELEASE TAB PO SCH (08:37)
[2017-04-26] MEDS: lamoTRIgine 100 MG TAB PO SCH (08:37)
[2017-04-26] MEDS: ALLOPURINOL 100 MG TAB PO SCH (08:38)
[2017-04-26] MEDS: metFORMIN HCL 500 MG TAB PO SCH ×2 (08:38→16:12)
[2017-04-26] MEDS: CITALOPRAM HYDROBROMIDE 40 MG TAB PO SCH (08:38)
[2017-04-26] MEDS: SODIUM CHLORIDE 0.9% FLUSH 10 ML FLUSH IV FLUSH SCH ×2 (08:41→20:50)
[2017-04-26] MEDS ORDERED: PHARMACY ORDERED LAB ONE (08:45)
[2017-04-26] MEDS: VANCOMYCIN INJ 1,750 MG in SODIUM CHLORID 0.9% 500 ML INJ 500 ML IV SCH (11:33)
--- NOTE | 2017-04-26 13:11 | HHI.PR ---
Subjective Remarks No new complaints. Objective Vitals Vital Signs Date Time Temp Pulse Resp B/P Pulse Ox O2 Delivery O2 Flow Rate FiO2 04/26/17 08:01 98.1 62 18 134/82 96 04/26/17 04:00 98.7 76 20 139/70 97 04/26/17 00:00 98.5 70 20 147/93 98 04/25/17 21:07 Room Air 04/25/17 20:00 98.2 86 22 143/70 99 04/25/17 18:00 98.4 74 16 168/94 95 Nasal Cannula 2 04/25/17 17:45 68 16 150/86 97 Nasal Cannula 2 04/25/17 17:38 98.0 74 16 187/87 98 Nasal Cannula 2 04/25/17 16:00 98.0 81 17 152/82 97 04/25/17 04/25/17 04/26/17 15:00 23:00 07:00 Intake Total 0 ml 350 ml Output Total 20 ml Balance 0 ml 330 ml Intake Oral 0 ml IV Total 50 ml Other 300 ml Estimated Blood Loss 20 ml # Voids 2 2 # Bowel Movements 1 Result Diagram: 04/25/17 0628 04/26/17 0556 Imaging Last 24 hours Impressions Chest X-Ray 04/24/17 1200 Signed Impressions: Service Date/Time: Monday, April 24, 2017 12:46 - CONCLUSION: Diffuse interstitial lung disease worse in the lung bases. Kuldeep Garrison MD Foot MRI 04/24/17 0000 Signed Impressions: Service Date/Time: Monday, April 24, 2017 14:20 - CONCLUSION: Large multi-loculated fluid collection primarily in the dorsum of the foot dorsum to the 2nd and 3rd metatarsal heads and MTP joints. It probably extends from an intermetatarsal bursa. The area is mostly fluid signal with non-enhancement suspicious for possible abscess formation. What is also concerning is the lack of enhancement in the plantar soft tissues underneath the 3rd, 4th and 5th metatarsal heads and MTP joints. It can be seen in patients with diabetic necrosis. There is a small area in the medial plantar aspect of the foot. Very impressive soft tissue enhancement and edema. Kuldeep Garrison MD Objective Remarks GENERAL: This is a well-nourished, well-developed patient, in no apparent distress. CARDIOVASCULAR: Regular rate and rhythm without murmurs, gallops, or rubs. RESPIRATORY: Clear to auscultation. Breath sounds equal bilaterally. No wheezes , rales, or rhonchi. GASTROINTESTINAL: Abdomen soft, non-tender, nondistended. Normal active bowel sounds MUSCULOSKELETAL: Extremities without clubbing, cyanosis, or edema. NEURO: Alert & Oriented x4 to person, place, time, situation. Moves all ext x4 EXT: Left foot wrapped A/P Problem List: (1) Abscess Status: Acute Plan: - comgmt with Podiatry and ID - MRI (04/24/17) --> abscess - bedside I&D performed by Dr. Shetty (04/24/17) - OR (04/25/17) with Dr. Shetty - deep abscess with plantar tunnelling - I&D - bone bx sent from left 2nd phalanx and metatarsal - Vancomycin & Zosyn - dilaudid prn pain/ norco prn (2) Diabetic foot ulcer Status: Acute Plan: - see above (3) DM2 (diabetes mellitus, type 2) Status: Chronic Plan: - metformin - SSI Problem Qualifiers (1) Diabetic foot ulcer: Qualified Code: E11.621 - Diabetic ulcer of left foot associated with type 2 diabetes mellitus, unspecified part of foot, unspecified ulcer stage (2) DM2 (diabetes mellitus, type 2): Héctor Vallejo DO Apr 26, 2017 13:11
--- NOTE | 2017-04-26 13:38 | HHI.IDPN ---
Note Infectious Disease Note Patient feels okay. Had nausea and vomiting and sweats with Dilaudid. Afebrile. No significant pain in r. foot. PAST MEDICAL HISTORY 1. Pulmonary fibrosis 2. Diabetes mellitus type 2 3. Coronary artery disease 4. History of back surgery. ALLERGIES NO KNOWN DRUG ALLERGIES. PHYSICAL EXAMINATION IN GENERAL: No acute distress. HEENT: No icterus. Oropharynx no visible lesions. Moist mucosa. NECK: Supple without adenopathy or swelling. LUNGS: Clear breath sounds. HEART: Regular S1-S2 without murmurs, rubs or gallops. ABDOMEN: Bowel sounds present, soft, nontender. EXTREMITIES: The left foot has severe erythema involving the base of the toes, particularly toes two through four area and spreading laterally towards the left lateral ankle and dorsally towards the anterior portion of the ankle. There is packing with in incised area at the base of toes two and three and slight purulent drainage on the dressing which was removed for inspection of the wound. The area is warm. There is also some erythema at the plantar aspect of the base of toes two and three. There is a tiny punctate dark spot at the area with the swelling in space of toes two and three, plantar aspect. SKIN: No diffuse rash. NEUROLOGIC: No gross focal findings. PSYCHIATRIC: The patient is calm and cooperative. LABORATORY DATA WBC 7.9, platelets 176, hemoglobin 11.1, sodium 138, creatinine 1.05, BUN 23, estimated glomerular filtration rate 70. IMPRESSION 1. Diabetic left foot infection. 2. Abscess of the left foot. 3. Cellulitis of the left foot. 4. Culture preliminary showing group A beta strep. RECOMMENDATIONS 1. Continue piperacillin/Tazobactam. 2. Continue vancomycin. 3. Await final culture results. 4. Monitor wound clinical response to antibiotic treatment. Eddi Cruz MD Apr 26, 2017 13:38
--- NOTE | 2017-04-26 13:40 | PD.POD ---
Subjective Pain score: 4 Remarks N and V with dilaudid, otherwise doing good. Past Med/Surg/Social History Social History Smoking Status: Never Smoker Objective Vital Signs Vital Signs Date Time Temp Pulse Resp B/P Pulse Ox O2 Delivery O2 Flow Rate FiO2 04/26/17 12:00 98.0 80 18 148/89 95 04/26/17 08:01 98.1 62 18 134/82 96 04/26/17 04:00 98.7 76 20 139/70 97 04/26/17 00:00 98.5 70 20 147/93 98 04/25/17 21:07 Room Air 04/25/17 20:00 98.2 86 22 143/70 99 04/25/17 18:00 98.4 74 16 168/94 95 Nasal Cannula 2 04/25/17 17:45 68 16 150/86 97 Nasal Cannula 2 04/25/17 17:38 98.0 74 16 187/87 98 Nasal Cannula 2 04/25/17 16:00 98.0 81 17 152/82 97 Coded Allergies: No Known Allergies (Unverified , 04/24/17) Medications and IVs Administered Medications Medications (Trade) Dose Ordered Sig/Rekha Route PRN Reason Start Time Stop Time Status Last Admin Dose Admin Sodium Chloride (NS Flush) 2 ml UNSCH PRN IV FLUSH FLUSH AFTER USING IV ACCESS 04/24/17 14:45 04/26/17 04:06 Sodium Chloride (NS Flush) 2 ml BID IV FLUSH 04/24/17 21:00 04/26/17 08:41 Acetaminophen (Tylenol) 650 mg Q4H PRN PO TEMP > 100.4 04/24/17 14:45 04/25/17 05:54 Enoxaparin Sodium (Lovenox Inj) 30 mg Q24H SQ 04/24/17 17:00 04/25/17 18:28 Hydromorphone HCl 0.5 mg 0.5 mg Q6H PRN IV PUSH pain 6-10 04/24/17 14:45 04/26/17 11:24 Piperacillin Sod/ Tazobactam Sod (Zosyn 3.375 Gm Premix) 50 ml @ 100 mls/hr Q6H IV 04/24/17 18:00 04/26/17 12:34 Allopurinol (Zyloprim) 200 mg DAILY PO 04/25/17 09:00 04/26/17 08:38 Citalopram Hydrobromide (CeleXA) 40 mg DAILY PO 04/25/17 09:00 04/26/17 08:38 Lamotrigine (LaMICtal) 150 mg DAILY PO 04/25/17 09:00 04/26/17 08:37 Metformin HCl 1000 mg 1,000 mg BIDPC PO 04/24/17 18:00 04/26/17 08:38 Vancomycin HCl/ Sodium Chloride (Vancomycin Inj/ NS 500 ml Inj) 517.5 ml @ 250 mls/hr Q18H IV 04/24/17 21:00 04/26/17 11:33 Nifedipine (Procardia Xl) 30 mg DAILY PO 04/25/17 13:00 04/26/17 08:37 Other Results Laboratory Tests Test 04/25/17 06:28 White Blood Count 7.9 TH/MM3 Red Blood Count 3.49 MIL/MM3 Hemoglobin 11.1 GM/DL Hematocrit 33.3 % Mean Corpuscular Volume 95.5 FL Mean Corpuscular Hemoglobin 31.9 PG Mean Corpuscular Hemoglobin 33.4 % Concent Red Cell Distribution Width 13.3 % Platelet Count 176 TH/MM3 Mean Platelet Volume 8.4 FL Neutrophils (%) (Auto) 71.1 % Lymphocytes (%) (Auto) 20.1 % Monocytes (%) (Auto) 5.6 % Eosinophils (%) (Auto) 2.7 % Basophils (%) (Auto) 0.5 % Neutrophils # (Auto) 5.6 TH/MM3 Lymphocytes # (Auto) 1.6 TH/MM3 Monocytes # (Auto) 0.4 TH/MM3 Eosinophils # (Auto) 0.2 TH/MM3 Basophils # (Auto) 0.0 TH/MM3 CBC Comment DIFF FINAL Differential Comment Laboratory Tests Test 04/25/17 04/26/17 06:28 05:56 Sodium Level 138 MEQ/L Potassium Level 4.1 MEQ/L Chloride Level 101 MEQ/L Carbon Dioxide Level 29.2 MEQ/L Anion Gap 8 MEQ/L Blood Urea Nitrogen 23 MG/DL Creatinine 1.05 MG/DL 0.98 MG/DL Estimat Glomerular Filtration 70 ML/MIN 76 ML/MIN Rate Random Glucose 111 MG/DL Calcium Level 9.1 MG/DL Microbiology Date/Time Procedure Status Source Growth 04/24/17 12:15 Aerobic Blood Culture - Preliminary Resulted Blood Peripheral NO GROWTH IN 2 DAYS 04/24/17 12:15 Anaerobic Blood Culture - Preliminary Resulted Blood Peripheral NO GROWTH IN 2 DAYS 04/24/17 12:26 Aerobic Blood Culture - Preliminary Resulted Blood Peripheral NO GROWTH IN 2 DAYS 04/24/17 12:26 Anaerobic Blood Culture - Preliminary Resulted Blood Peripheral NO GROWTH IN 2 DAYS 04/24/17 12:26 Gram Stain - Final Complete Wound Foot 04/24/17 12:26 Wound Culture - Final Complete Group A Beta Strep 04/24/17 17:45 Gram Stain - Final Resulted Abscess Foot 04/24/17 17:45 Wound Culture - Preliminary Resulted Group A Beta Strep 04/25/17 17:11 Gram Stain - Final Resulted Wound Toe 04/25/17 17:11 Wound Culture Resulted Wound Toe Pending 04/25/17 17:11 Acid Fast Stain Received Wound Toe Pending 04/25/17 17:11 Mycobacterial Culture Received Wound Toe Pending 04/25/17 17:11 Fungal Smear - Final Resulted Wound Toe NO FUNGAL ELEMENTS SEEN. 04/25/17 17:11 Fungal Culture Resulted Wound Toe Pending Physical Exam Remarks Right foot 2nd digit amputation site with mild bruising and some redness of the dorsal foot. Assessment & Plan A/P Right digit ulcer, hammertoe, OM SP rt 2nd digit amp. Surgical Wd cx neg 24hrs. Ok to FU out pt, reviewed case with Medicine and ID, FU one week out pt. Fidel Shetty DPAna Luisa Apr 26, 2017 13:39
--- NOTE | 2017-04-26 13:46 | HHI.PR ---
Subjective Remarks pain medication NOT lasting long enough. Objective Vitals Vital Signs Date Time Temp Pulse Resp B/P Pulse Ox O2 Delivery O2 Flow Rate FiO2 04/26/17 12:00 98.0 80 18 148/89 95 04/26/17 08:10 Room Air 04/26/17 08:01 98.1 62 18 134/82 96 04/26/17 04:00 98.7 76 20 139/70 97 04/26/17 00:00 98.5 70 20 147/93 98 04/25/17 21:07 Room Air 04/25/17 20:00 98.2 86 22 143/70 99 04/25/17 18:00 98.4 74 16 168/94 95 Nasal Cannula 2 04/25/17 17:45 68 16 150/86 97 Nasal Cannula 2 04/25/17 17:38 98.0 74 16 187/87 98 Nasal Cannula 2 04/25/17 16:00 98.0 81 17 152/82 97 04/25/17 04/25/17 04/26/17 15:00 23:00 07:00 Intake Total 0 ml 350 ml Output Total 20 ml Balance 0 ml 330 ml Intake Oral 0 ml IV Total 50 ml Other 300 ml Estimated Blood Loss 20 ml # Voids 2 2 # Bowel Movements 1 Result Diagram: 04/25/17 0628 04/26/17 0556 Imaging Last 24 hours Impressions Chest X-Ray 04/24/17 1200 Signed Impressions: Service Date/Time: Monday, April 24, 2017 12:46 - CONCLUSION: Diffuse interstitial lung disease worse in the lung bases. Kuldeep Garrison MD Foot MRI 04/24/17 0000 Signed Impressions: Service Date/Time: Monday, April 24, 2017 14:20 - CONCLUSION: Large multi-loculated fluid collection primarily in the dorsum of the foot dorsum to the 2nd and 3rd metatarsal heads and MTP joints. It probably extends from an intermetatarsal bursa. The area is mostly fluid signal with non-enhancement suspicious for possible abscess formation. What is also concerning is the lack of enhancement in the plantar soft tissues underneath the 3rd, 4th and 5th metatarsal heads and MTP joints. It can be seen in patients with diabetic necrosis. There is a small area in the medial plantar aspect of the foot. Very impressive soft tissue enhancement and edema. Kuldeep Garrison MD Objective Remarks GENERAL: This is a well-nourished, well-developed patient, in no apparent distress. CARDIOVASCULAR: Regular rate and rhythm without murmurs, gallops, or rubs. RESPIRATORY: Clear to auscultation. Breath sounds equal bilaterally. No wheezes , rales, or rhonchi. GASTROINTESTINAL: Abdomen soft, non-tender, nondistended. Normal active bowel sounds MUSCULOSKELETAL: Extremities without clubbing, cyanosis, or edema. NEURO: Alert & Oriented x4 to person, place, time, situation. Moves all ext x4 EXT: Left foot wrapped A/P Problem List: (1) Abscess Status: Acute Plan: - comgmt with Podiatry and ID - MRI (04/24/17) --> abscess - bedside I&D performed by Dr. Shetty (04/24/17) - OR (04/25/17) with Dr. Shetty - deep abscess with plantar tunnelling - I&D - bone bx sent from left 2nd phalanx and metatarsal - Vancomycin & Zosyn - dilaudid increased to q4h prn pain/ norco prn - Case d/w Dr. Shetty (04/26/17) - Case d/w Dr. Hinton (04/26/17) - follow cultures - await pathology - possible d/c to home 04/29 or 04/30 (2) Diabetic foot ulcer Status: Acute Plan: - see above (3) DM2 (diabetes mellitus, type 2) Status: Chronic Plan: - metformin - SSI Problem Qualifiers (1) Diabetic foot ulcer: Qualified Code: E11.621 - Diabetic ulcer of left foot associated with type 2 diabetes mellitus, unspecified part of foot, unspecified ulcer stage (2) DM2 (diabetes mellitus, type 2): Héctor Vallejo DO Apr 26, 2017 13:46
[2017-04-26] MEDS ORDERED: TEMAZEPAM 15 MG CAP PO PRN (14:00)
--- NOTE | 2017-04-26 14:00 | HHI.IDPN ---
Note Infectious Disease Note Patient feels okay. No complaints. Afebrile. Post op left foot abscess drainage. Culture has group B strep. Path pending. PAST MEDICAL HISTORY 1. Pulmonary fibrosis 2. Diabetes mellitus type 2 3. Coronary artery disease 4. History of back surgery. ALLERGIES NO KNOWN DRUG ALLERGIES. OBJECTIVE: Vital Signs Date Time Temp Pulse Resp B/P Pulse Ox O2 Delivery O2 Flow Rate FiO2 04/26/17 12:00 98.0 80 18 148/89 95 04/26/17 08:10 Room Air 04/26/17 08:01 98.1 62 18 134/82 96 04/26/17 04:00 98.7 76 20 139/70 97 04/26/17 00:00 98.5 70 20 147/93 98 04/25/17 21:07 Room Air 04/25/17 20:00 98.2 86 22 143/70 99 04/25/17 18:00 98.4 74 16 168/94 95 Nasal Cannula 2 04/25/17 17:45 68 16 150/86 97 Nasal Cannula 2 04/25/17 17:38 98.0 74 16 187/87 98 Nasal Cannula 2 04/25/17 16:00 98.0 81 17 152/82 97 Laboratory Tests Test 04/25/17 06:28 White Blood Count 7.9 TH/MM3 Red Blood Count 3.49 MIL/MM3 Hemoglobin 11.1 GM/DL Hematocrit 33.3 % Mean Corpuscular Volume 95.5 FL Mean Corpuscular Hemoglobin 31.9 PG Mean Corpuscular Hemoglobin 33.4 % Concent Red Cell Distribution Width 13.3 % Platelet Count 176 TH/MM3 Mean Platelet Volume 8.4 FL Neutrophils (%) (Auto) 71.1 % Lymphocytes (%) (Auto) 20.1 % Monocytes (%) (Auto) 5.6 % Eosinophils (%) (Auto) 2.7 % Basophils (%) (Auto) 0.5 % Neutrophils # (Auto) 5.6 TH/MM3 Lymphocytes # (Auto) 1.6 TH/MM3 Monocytes # (Auto) 0.4 TH/MM3 Eosinophils # (Auto) 0.2 TH/MM3 Basophils # (Auto) 0.0 TH/MM3 CBC Comment DIFF FINAL Differential Comment Laboratory Tests Test 04/25/17 04/26/17 06:28 05:56 Sodium Level 138 MEQ/L Potassium Level 4.1 MEQ/L Chloride Level 101 MEQ/L Carbon Dioxide Level 29.2 MEQ/L Anion Gap 8 MEQ/L Blood Urea Nitrogen 23 MG/DL Creatinine 1.05 MG/DL 0.98 MG/DL Estimat Glomerular Filtration 70 ML/MIN 76 ML/MIN Rate Random Glucose 111 MG/DL Calcium Level 9.1 MG/DL Microbiology Date/Time Procedure Status Source Growth 04/24/17 12:15 Aerobic Blood Culture - Preliminary Resulted Blood Peripheral NO GROWTH IN 2 DAYS 04/24/17 12:15 Anaerobic Blood Culture - Preliminary Resulted Blood Peripheral NO GROWTH IN 2 DAYS 04/24/17 12:26 Aerobic Blood Culture - Preliminary Resulted Blood Peripheral NO GROWTH IN 2 DAYS 04/24/17 12:26 Anaerobic Blood Culture - Preliminary Resulted Blood Peripheral NO GROWTH IN 2 DAYS 04/24/17 12:26 Gram Stain - Final Complete Wound Foot 04/24/17 12:26 Wound Culture - Final Complete Group A Beta Strep 04/24/17 17:45 Gram Stain - Final Resulted Abscess Foot 04/24/17 17:45 Wound Culture - Preliminary Resulted Group A Beta Strep 04/25/17 17:11 Gram Stain - Final Resulted Wound Toe 04/25/17 17:11 Wound Culture Resulted Wound Toe Pending 04/25/17 17:11 Acid Fast Stain Received Wound Toe Pending 04/25/17 17:11 Mycobacterial Culture Received Wound Toe Pending 04/25/17 17:11 Fungal Smear - Final Resulted Wound Toe NO FUNGAL ELEMENTS SEEN. 04/25/17 17:11 Fungal Culture Resulted Wound Toe Pending PHYSICAL EXAMINATION IN GENERAL: No acute distress. HEENT: No icterus. Oropharynx no visible lesions. Moist mucosa. NECK: Supple without adenopathy or swelling. LUNGS: Clear breath sounds. HEART: Regular S1-S2 without murmurs, rubs or gallops. EXTREMITIES: The left foot is post abscess drainage. Dressing in place. SKIN: No diffuse rash. NEUROLOGIC: No gross focal findings. PSYCHIATRIC: Calm and cooperative. IMPRESSION 1. Diabetic left foot infection. 2. Abscess of the left foot. Group A beta strep. 3. Cellulitis of the left foot. RECOMMENDATIONS 1. Stop piperacillin/Tazobactam. 2. Stop vancomycin. 3. Start IV Ancef. 4. Await path results for final determination of course of antibiotics. 5. Monitor clinical response. Will place a PICC in anticipation of IV discharge antibiotics. Dontfraid,Eddi F MD Apr 26, 2017 14:00
[2017-04-26] MEDS: ENOXAPARIN SODIUM 30 MG/0.3 ML SYRINGE SQ SCH (16:09)
[2017-04-26] MEDS: ACETAMINOPHEN/HYDROcodone 325 MG/5 MG TAB PO PRN (16:10)
[2017-04-27] VITALS (8 sets, daily range): BP systolic 145–171; BP diastolic 67–92; PULSE 60–89; RESP 16–21; TEMP 97.4–98.5; O2SAT 95–99
[2017-04-27] MEDS: HYDROmorphone HCL PF 1 MG/ML VIAL IV PUSH PRN ×4 (01:23→18:27)
[2017-04-27] MEDS: INSULIN ASPART SUPPLEMENTAL SCALE SQ SCH ×4 (05:43→20:25)
[2017-04-27] MEDS: ACETAMINOPHEN/HYDROcodone 325 MG/5 MG TAB PO PRN ×2 (08:30→23:37)
[2017-04-27] MEDS: SODIUM CHLORIDE 0.9% FLUSH 10 ML FLUSH IV FLUSH SCH ×2 (09:00→20:25)
[2017-04-27] MEDS: lamoTRIgine 100 MG TAB PO SCH (09:00)
[2017-04-27] MEDS: metFORMIN HCL 500 MG TAB PO SCH ×2 (09:00→18:25)
--- NOTE | 2017-04-27 10:20 | MP ---
cc: CELIA GARDINER DATE OF SURGERY: 04/27/2017 PREOPERATIVE DIAGNOSIS: Left foot abscess, cellulitis, puncture wound with diabetic foot infection. POSTOPERATIVE DIAGNOSIS: Left foot abscess, cellulitis, puncture wound with diabetic foot infection. OPERATION: Expansile dorsal and Plantar, left foot excision, drainage, bone biopsy with incision cortex of the second metatarsal and the second proximal phalanx base. FINDINGS Deep abscess with plantar tunneling from plantar wound with possible bone involvement as stated above. COMPLICATIONS None ESTIMATED BLOOD LOSS Less than 100 mls. SPECIMEN Bone from digit second as well as second metatarsal for pathological analysis as well as deep culture taken from bone. ANESTHESIA General. FLUIDS: Local 20 mL of 0.25% Marcaine, plain. Proximal ankle block. IV FLUIDS Please see anesthesia report. PLAN OF ACTIVITY: PACU then return to floor. CONDITION: The patient's condition is fair. JUSTIFICATION FOR PROCEDURE: A 66-year-old male with worsening foot pain and swelling incision and drainage took place on the floor last night resulting in significant amounts of purulent material white blood cell count trended down. We plan to move forward with more excision and drainage to prevent any further proximal spread the patient has improved overnight. The patient understood the severity of the infection of the possibility of the need for long-term IV antibiotics as well as repeat debridement procedures. No guarantees given or implied regarding the outcome. PROCEDURE IN DETAIL Under mild sedation the patient was brought to the operating room, placed on the operative the supine position following the induction of LMA general anesthesia, local anesthesia was obtained about the proximal ankle utilizing standard block fashion. The patient's left foot was then scrubbed, prepped and draped in the usual aseptic fashion. The foot was elevated, exsanguinated. The foot was elevated and examined. There is noted to be fluctuant, erythematous lesion that started the level of the second and third digit base. The linear incision was made full thickness down to the tendon sheath as well as the deep interspace. There is noted to be purulent material utilizing pulse lavage curette and rongeur. The abscess was evacuated plantar incision was made excising the tunnel of the entrance which appeared to be a puncture wound. There is no signs of foreign body. This appeared to probe to the level the second MPJ utilizing a rongeur the base of second digit a biopsy was performed in a culture at this area, as well as the head of the second metatarsal. Clinically it was hard intact without any signs of clinical osteomyelitis. The wound was then flushed again with 3 liters normal saline, packed open digits remained viable. There is good bleeding at the surgery site. No compromise to the vascular status a bulky bandage applied. The patient is transferred from OR to PACU with all vital signs stable after uneventful extubation. The patient will continue to elevate, continue IV antibiotics, follow the wound, possible need for repeat incision and drainage pending the patient's clinical response. ORLANDO Padilla/chary /5:59 PM /10:13 AM
--- NOTE | 2017-04-27 11:45 | PD.POD ---
Subjective Pain score: 4 Remarks Mild pain remains otherwise doing well Past Med/Surg/Social History Social History Smoking Status: Never Smoker Objective Vital Signs Vital Signs Date Time Temp Pulse Resp B/P Pulse Ox O2 Delivery O2 Flow Rate FiO2 04/27/17 08:02 98.0 81 21 171/92 97 04/27/17 08:00 99 Blow By 04/27/17 04:59 98.3 60 18 156/68 98 04/27/17 00:22 98.5 82 16 96 04/26/17 23:59 144/68 04/26/17 20:00 98.7 79 18 143/74 95 04/26/17 20:00 Room Air 04/26/17 17:44 93 21 04/26/17 16:00 98.2 86 18 166/84 93 04/26/17 16:00 Room Air 04/26/17 13:55 96 04/26/17 12:00 Room Air 04/26/17 12:00 98.0 80 18 148/89 95 Coded Allergies: No Known Allergies (Unverified , 04/24/17) Medications and IVs Administered Medications Medications (Trade) Dose Ordered Sig/Rekha Route PRN Reason Start Time Stop Time Status Last Admin Dose Admin Sodium Chloride (NS Flush) 2 ml UNSCH PRN IV FLUSH FLUSH AFTER USING IV ACCESS 04/24/17 14:45 04/26/17 04:06 Sodium Chloride (NS Flush) 2 ml BID IV FLUSH 04/24/17 21:00 04/26/17 20:50 Acetaminophen (Tylenol) 650 mg Q4H PRN PO TEMP > 100.4 04/24/17 14:45 04/25/17 05:54 Enoxaparin Sodium (Lovenox Inj) 30 mg Q24H SQ 04/24/17 17:00 04/26/17 16:09 Allopurinol (Zyloprim) 200 mg DAILY PO 04/25/17 09:00 04/26/17 08:38 Citalopram Hydrobromide (CeleXA) 40 mg DAILY PO 04/25/17 09:00 04/26/17 08:38 Lamotrigine (LaMICtal) 150 mg DAILY PO 04/25/17 09:00 04/26/17 08:37 Metformin HCl (Glucophage) 1,000 mg BIDPC PO 04/24/17 18:00 04/26/17 16:12 Nifedipine (Procardia Xl) 30 mg DAILY PO 04/25/17 13:00 04/26/17 08:37 Acetaminophen/ Hydrocodone Bitart ([place] 5-325 Mg) 1 tab Q4H PRN PO pain 1-5 04/26/17 16:45 04/27/17 08:30 Hydromorphone HCl 0.5 mg 0.5 mg Q4H PRN IV PUSH pain 6-10 04/26/17 16:45 04/27/17 05:41 Cefazolin Sodium/ Sodium Chloride (Ancef Inj/NS Inj) 100 ml @ 200 mls/hr Q8H IV 04/26/17 16:00 04/27/17 01:27 Other Results Laboratory Tests Test 04/26/17 05:56 Creatinine 0.98 MG/DL Estimat Glomerular Filtration 76 ML/MIN Rate Microbiology Date/Time Procedure Status Source Growth 04/24/17 12:15 Aerobic Blood Culture - Preliminary Resulted Blood Peripheral NO GROWTH IN 3 DAYS 04/24/17 12:15 Anaerobic Blood Culture - Preliminary Resulted Blood Peripheral NO GROWTH IN 3 DAYS 04/24/17 12:26 Aerobic Blood Culture - Preliminary Resulted Blood Peripheral NO GROWTH IN 3 DAYS 04/24/17 12:26 Anaerobic Blood Culture - Preliminary Resulted Blood Peripheral NO GROWTH IN 3 DAYS 04/24/17 12:26 Gram Stain - Final Complete Wound Foot 04/24/17 12:26 Wound Culture - Final Complete Group A Beta Strep 04/24/17 17:45 Gram Stain - Final Complete Abscess Foot 04/24/17 17:45 Wound Culture - Final Complete Group A Beta Strep 04/25/17 17:11 Gram Stain - Final Resulted Wound Toe 04/25/17 17:11 Wound Culture - Preliminary Resulted Wound Toe NO GROWTH IN 24 HOURS. 04/25/17 17:11 Acid Fast Stain - Final Resulted Wound Toe NO ACID FAST BACILLI SEEN 04/25/17 17:11 Mycobacterial Culture Resulted Wound Toe Pending 04/25/17 17:11 Fungal Smear - Final Resulted Wound Toe NO FUNGAL ELEMENTS SEEN. 04/25/17 17:11 Fungal Culture Resulted Wound Toe Pending Bone from surgery path is still pending Exam-Podiatry Remarks Left foot- plantar wound appears to be improved, dorsal incision of 2 3 metatarsal area forefoot with packing intact with decreased redness, no pus or ischemic changes, no streaking proximal to the foot, good ROM of foot and ankle , pedal pulses are palpable, sensation is decreased to light touch. Assessment & Plan A/P Left foot, deep abscess with puncture wound, R/O OM. Improving, packing removed, continue IV ABX, no plans for further debridement. Plan for upon DC. Fidel Shetty DPM Apr 27, 2017 11:44
--- NOTE | 2017-04-27 11:49 | HHI.PR ---
Subjective Remarks No new complaints. Objective Vitals Vital Signs Date Time Temp Pulse Resp B/P Pulse Ox O2 Delivery O2 Flow Rate FiO2 04/27/17 08:02 98.0 81 21 171/92 97 04/27/17 08:00 99 Blow By 04/27/17 04:59 98.3 60 18 156/68 98 04/27/17 00:22 98.5 82 16 96 04/26/17 23:59 144/68 04/26/17 20:00 98.7 79 18 143/74 95 04/26/17 20:00 Room Air 04/26/17 17:44 93 21 04/26/17 16:00 98.2 86 18 166/84 93 04/26/17 16:00 Room Air 04/26/17 13:55 96 04/26/17 12:00 Room Air 04/26/17 12:00 98.0 80 18 148/89 95 04/26/17 04/26/17 04/27/17 14:59 22:59 06:59 Intake Total 1440 ml 500 ml Output Total 600 ml Balance 840 ml 500 ml Intake Oral 1440 ml 500 ml Output Urine Total 600 ml # Voids 3 4 # Bowel Movements 1 0 Result Diagram: 04/25/17 0628 04/26/17 0556 Imaging Last 24 hours Impressions Chest X-Ray 04/24/17 1200 Signed Impressions: Service Date/Time: Monday, April 24, 2017 12:46 - CONCLUSION: Diffuse interstitial lung disease worse in the lung bases. Kuldeep Garrison MD Foot MRI 04/24/17 0000 Signed Impressions: Service Date/Time: Monday, April 24, 2017 14:20 - CONCLUSION: Large multi-loculated fluid collection primarily in the dorsum of the foot dorsum to the 2nd and 3rd metatarsal heads and MTP joints. It probably extends from an intermetatarsal bursa. The area is mostly fluid signal with non-enhancement suspicious for possible abscess formation. What is also concerning is the lack of enhancement in the plantar soft tissues underneath the 3rd, 4th and 5th metatarsal heads and MTP joints. It can be seen in patients with diabetic necrosis. There is a small area in the medial plantar aspect of the foot. Very impressive soft tissue enhancement and edema. Kuldeep Garrison MD Objective Remarks GENERAL: This is a well-nourished, well-developed patient, in no apparent distress. CARDIOVASCULAR: Regular rate and rhythm without murmurs, gallops, or rubs. RESPIRATORY: Clear to auscultation. Breath sounds equal bilaterally. No wheezes , rales, or rhonchi. GASTROINTESTINAL: Abdomen soft, non-tender, nondistended. Normal active bowel sounds MUSCULOSKELETAL: Extremities without clubbing, cyanosis, or edema. NEURO: Alert & Oriented x4 to person, place, time, situation. Moves all ext x4 EXT: decreased erythema, plantar wound healing well, surgical wound clean A/P Problem List: (1) Abscess Status: Acute Plan: - comgmt with Podiatry and ID - MRI (04/24/17) --> abscess - bedside I&D performed by Dr. Shetty (04/24/17) - OR (04/25/17) with Dr. Shetty - deep abscess with plantar tunnelling - I&D - bone bx sent from left 2nd phalanx and metatarsal - Vancomycin & Zosyn (04/24 - 04/26/17k) - dilaudid/norco q4h prn pain - Case d/w Dr. Shetty (04/27/17) - Case d/w Dr. Hinton (04/26/17) - surgical wound inspected together with Dr. Shetty at the bedside, clean & healing - wound cx (04/24/17) --> light growth of Group A Beta Strep - operative cx (04/25/17) --> NGTD - await pathology - Ancef IV 1g q8h x 3 weeks - f/u with Dr. Hernandez outpt. - PICC line to be placed - anticipate d/c to home tomorrow (04/28/17) with [facility]HC & home PT (2) Diabetic foot ulcer Status: Acute Plan: - see above (3) DM2 (diabetes mellitus, type 2) Status: Chronic Plan: - metformin - SSI Problem Qualifiers (1) Diabetic foot ulcer: Qualified Code: E11.621 - Diabetic ulcer of left foot associated with type 2 diabetes mellitus, unspecified part of foot, unspecified ulcer stage (2) DM2 (diabetes mellitus, type 2): Héctor Vallejo DO Apr 27, 2017 11:49
--- NOTE | 2017-04-27 11:53 | HHI.FF ---
Face to Face Verification Diagnosis: (1) Diabetic foot ulcer (2) Cellulitis of left foot (3) Abscess (4) DM2 (diabetes mellitus, type 2) Physical Therapy Order: Evaluate and Treat, Improve ambulation, Strength and gait training Home Health Nursing Order: Medical education Signs/symptoms of disease process Medication education-adverse effect Wound care and dressing changes Nursing assessment with vital signs Instructions: IV ancef q8h x 3 weeks wound care per Podiatry recommendations I have seen patient Raad Reis on 04/27/17. My clinical findings support the need for the requested home health care services because: Ltd mobility - disease progression Deconditioned w/ increased weakness Med compliance is questionable Limited ability to care for self Infection w/ risk of complications Injectable med education/admin I certify that my clinical findings support that this patient is homebound because: Unsteady gait/balance Unsafe to leave home unassisted Need for psychosocial assistance Unable to use public transportation Héctor Vallejo DO Apr 27, 2017 11:53
--- NOTE | 2017-04-27 11:55 | HHI.FF ---
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 [] May leave port accessed during therapy. [] May leave peripheral site accessed for duration of therapy. [x] If patient has SOB or respiratory distress, check oxygen saturation. If less than 90% or clinical signs of respiratory distress, administer oxygen at 2 L/min. via nasal cannula and notify physician. [x] Anaphylaxis/Reaction orders: * Stop infusion. * Keep IV line open with saline flush. * Notify physician. * Monitor vital signs every 15 minutes until symptoms resolve. * Check Oxygen saturation; Oxygen at 2 L/min. via nasal cannula if less than 90% or clinical signs of respiratory distress. * Administer diphenhydramine (Benadryl) 25 mg IV STAT, (unless patient has received as pre-med). May repeat once, if necessary. * Solu-Cortef 250 mg IVP over 30-60 seconds, use 100 mg vials for each dissolution. * Epinephrine (1mg/1 ml) 0.3 mg subcutaneously or IVP now with any signs of respiratory distress. * Check with physician for new additional pre-med orders if patient is re- challenged or re-treated. [x] May remove PICC line when treatment complete, after confirming with Physician. [x] If the patient is admitted to the hospital, the ED, or transferred via [facility] , complete transfer form including medication reconciliation order sheet. Laboratory Tests Weekly Labs: BMP, CMP Héctor Vallejo DO Apr 27, 2017 11:55
[2017-04-27] MEDS: CITALOPRAM HYDROBROMIDE 40 MG TAB PO SCH (12:20)
[2017-04-27] MEDS: ALLOPURINOL 100 MG TAB PO SCH (12:20)
[2017-04-27] MEDS: NIFEdipine 30 MG SUSTAINED RELEASE TAB PO SCH (12:20)
[2017-04-27] MEDS: ENOXAPARIN SODIUM 30 MG/0.3 ML SYRINGE SQ SCH (16:54)
[2017-04-28] VITALS: BP 108/54; PULSE 60; RESP 18; TEMP 98; O2SAT 97
[2017-04-28 04:00] VITALS: BP 122/68; PULSE 58; RESP 18; TEMP 98.1; O2SAT 100
[2017-04-28] MEDS: HYDROmorphone HCL PF 1 MG/ML VIAL IV PUSH PRN (04:18)
[2017-04-28] MEDS: INSULIN ASPART SUPPLEMENTAL SCALE SQ SCH ×3 (06:09→16:00)
[2017-04-28 08:02] VITALS: BP 144/81; PULSE 88; RESP 18; TEMP 97.5; O2SAT 93
[2017-04-28] MEDS: CITALOPRAM HYDROBROMIDE 40 MG TAB PO SCH (09:00)
[2017-04-28] MEDS: metFORMIN HCL 500 MG TAB PO SCH ×2 (09:00→16:45)
[2017-04-28] MEDS: SODIUM CHLORIDE 0.9% FLUSH 10 ML FLUSH IV FLUSH SCH (09:00)
[2017-04-28] MEDS: ALLOPURINOL 100 MG TAB PO SCH (09:00)
[2017-04-28] MEDS: NIFEdipine 30 MG SUSTAINED RELEASE TAB PO SCH (09:00)
[2017-04-28] MEDS: lamoTRIgine 100 MG TAB PO SCH (09:00)
--- NOTE | 2017-04-28 12:06 | PD.POD ---
Subjective Pain score: 1 Remarks Minimal pain remains otherwise doing well Past Med/Surg/Social History Social History Smoking Status: Never Smoker Objective Vital Signs Vital Signs Date Time Temp Pulse Resp B/P Pulse Ox O2 Delivery O2 Flow Rate FiO2 04/28/17 08:02 97.5 88 18 144/81 93 04/28/17 08:00 97 Room Air 04/28/17 04:43 18 04/28/17 04:00 98.1 58 18 122/68 100 04/28/17 03:59 Room Air 04/28/17 01:04 18 04/28/17 00:00 98.0 60 18 108/54 97 04/28/17 00:00 Room Air 04/27/17 20:46 95 Nasal Cannula 2.00 04/27/17 20:25 Room Air 04/27/17 20:00 98.0 81 18 145/67 97 04/27/17 16:30 97.4 89 20 153/84 95 Coded Allergies: No Known Allergies (Unverified , 04/24/17) Physical Exam Remarks Left foot- plantar wound appears to be improved, dorsal incision of 2 3 metatarsal area forefoot continued decreased redness, no pus or ischemic changes , no streaking proximal to the foot, good ROM of foot and ankle, pedal pulses are palpable, sensation is decreased to light touch. Assessment & Plan A/P Left foot, deep abscess with puncture wound, R/O OM. Improving, continue IV ABX out pt, post op shoe ordered, Ok for heel WB, FU 1 week outpt. Fidel Shetty DPM Apr 28, 2017 12:06
[2017-04-28 12:16] VITALS: BP 151/85; PULSE 67; RESP 18; TEMP 98.3; O2SAT 96
[2017-04-28] MEDS ORDERED: HYDR-3516 PO (15:24)
[2017-04-28] MEDS ORDERED: [UNRECOGNIZED DRUG - CODE] IV (15:24)
--- NOTE | 2017-04-28 15:33 | HHI.DCPOC ---
Discharge Care Plan Diagnosis: (1) Cellulitis of left foot (2) Abscess (3) Diabetic foot ulcer (4) DM2 (diabetes mellitus, type 2) Goals to Promote Your Health * To prevent worsening of your condition and complications * To maintain your health at the optimal level Directions to Meet Your Goals Take your medications as prescribed Follow your dietary instruction Follow activity as directed Keep your appointments as scheduled Take your immunizations and boosters as scheduled If your symptoms worsen call your PCP, if no PCP go to Urgent Care Center or Emergency Room Smoking is Dangerous to Your Health. Avoid second hand smoke Call the 24-hour hour crisis hotline for domestic abuse at Héctor Vallejo DO Apr 28, 2017 15:33
--- NOTE | 2017-04-28 15:33 | HHI.DS ---
Discharge Summary Admission Date Apr 24, 2017 at 14:53 Discharge Date: Apr 28, 2017 Admitting Diagnosis left foot cellulitis, rule out osteomyelitis (1) Abscess Diagnosis: Principal (2) Diabetic foot ulcer Diagnosis: Principal (3) DM2 (diabetes mellitus, type 2) Diagnosis: Secondary Consultants Dr. Fidel Shetty, Podiatry Brief History Patient is a 66-year-old male presenting to emergency evaluation of left foot swelling and redness. Patient states his ongoing for 4 days, Saturday he went to his primary care provider and was prescribed doxycycline and amoxicillin which he has been compliant with. The area was marked and the erythema has spread beyond the marked borders. Last night a blister erupted over the third MTP swelling and redness has spread to the ankle. Patient reports 8 out of 10 pain. He described his pain as aching and throbbing. Patient has a past medical history significant for type 2 diabetes, pulmonary fibrosis, coronary artery disease with stent placed. He was seen and evaluated by Dr. Greene on Saturday. He has seen Dr. Figueroa in the past for a toe fungus. Patient started on IV antibiotics mri ordered and consult ID and podiatry. CBC/BMP: 04/25/17 0628 04/26/17 0556 Significant Findings Laboratory Tests Test 04/26/17 04/26/17 05:56 09:20 Estimat Glomerular Filtration 76 ML/MIN (>89) Rate Vancomycin Level Trough 11.9 MCG/ML (5.0-10.0) PE at Discharge GENERAL: This is a well-nourished, well-developed patient, in no apparent distress. CARDIOVASCULAR: Regular rate and rhythm without murmurs, gallops, or rubs. RESPIRATORY: Clear to auscultation. Breath sounds equal bilaterally. No wheezes , rales, or rhonchi. GASTROINTESTINAL: Abdomen soft, non-tender, nondistended. Normal active bowel sounds MUSCULOSKELETAL: Extremities without clubbing, cyanosis, or edema. NEURO: Alert & Oriented x4 to person, place, time, situation. Moves all ext x4 EXT: decreased erythema, plantar wound healing well, surgical wound clean Hospital Course (1) Abscess Status: Acute Plan: - comgmt with Podiatry and ID - MRI (04/24/17) --> abscess - bedside I&D performed by Dr. Shetty (04/24/17) - OR (04/25/17) with Dr. Shetty - deep abscess with plantar tunnelling - I&D - bone bx sent from left 2nd phalanx and metatarsal - Vancomycin & Zosyn (04/24 - 04/26/17k) - norco q4h prn pain - Case d/w Dr. Shetty (04/27/17) - Case d/w Dr. Hinton (04/26/17) - surgical wound inspected together with Dr. Shetty at the bedside, clean & healing - wound cx (04/24/17) --> light growth of Group A Beta Strep - operative cx (04/25/17) --> NGTD, 4d - await pathology, Dr. Shetty with follow - Ancef IV 1g q8h x 3 weeks by PICC - f/u with Dr. Hernandez outpt. - discharge to home see orders - f/u with Dr. Shetty in 1 week - f/u with PCP, Dr. Greene, in 1 week (2) Diabetic foot ulcer Status: Acute Plan: - see above (3) DM2 (diabetes mellitus, type 2) Status: Chronic Plan: - metformin Pt Condition on Discharge: Stable Discharge Disposition: Disch w/ Home Health Serv Discharge Instructions DIET: Follow Instructions for: Heart Healthy Diet, Diabetic Diet Activities you can perform: Partial Weight Bearing Other Activity Instructions: heel weight bearing only on surgical foot see specific podiatry instructions Follow up Referrals: Infectious Disease - [address] Fiorella Hernandez PCP Follow-up - [address] Katherin Greene Podiatry - 1 Week with Fidel Shetty DPM New Medications: Cefazolin Inj (Cefazolin Inj) 1 Gm/50 Ml Bagp 1 GM IV Q8H Infection Days 21 BAG Hydrocodone-Acetaminophen (Hydrocodone-Acetaminophen) 5-325 mg Tab 1 TAB PO Q4H PRN pain #20 Ref 0 TAB Continued Medications: Allopurinol (Allopurinol) 100 Mg Tab 200 MG PO DAILY Gout #30 Ref 0 TAB Citalopram (Citalopram) 40 Mg Tab 40 MG PO DAILY Control Depression #30 Ref 0 TAB Lamotrigine (Lamotrigine) 150 Mg Tab 150 MG PO DAILY Control Seizures #30 Ref 0 TAB Metformin (Metformin) 1,000 Mg Tab 1000 MG PO BIDPC With meals Blood Sugar Management #60 Ref 0 TAB Pioglitazone (Pioglitazone) 15 Mg Tab 15 MG PO DAILY Blood Sugar Management #30 Ref 0 TAB Discontinued Medications: Amoxicillin-Clavulanate (Amoxicillin-Clavulanate) 875-125 mg Tab 875 MG PO BID not for use in CrCl <30 mL/minute Infection #28 Ref 0 TAB Hydrocodone-Acetaminophen ([place]) 10-325 Mg Tab 1 TAB PO Q4H PRN PAIN Ref 0 TAB Héctor Vallejo DO Apr 28, 2017 15:33
[2017-04-28] MEDS ORDERED: PHARMACY ORDERED LAB ONE (15:45)
[2017-04-28 16:02] VITALS: BP 155/88; PULSE 84; RESP 18; TEMP 98.4; O2SAT 96
[2017-04-28] MEDS: ACETAMINOPHEN/HYDROcodone 325 MG/5 MG TAB PO PRN (16:57)
== END 2017-04-28 17:36 | disposition home health service (06) | DRG 580 ==
LOC: NEPC 11:02 → NEDA 14:53 → N04A 16:30
PROVIDERS: ADMIT Hospitalist; ATTEND Hospitalist
PROC: 3E0T3CZ (ICD-10-PCS; 2017-04-25)
PROC: 0QBP0ZX Excision of Left Metatarsal, Open Approach, Diagnostic (ICD-10-PCS; principal; 2017-04-25 16:39)
DX: L02.612 Cutaneous abscess of left foot (principal); L03.116 Cellulitis of left lower limb; E11.621 Type 2 diabetes mellitus with foot ulcer; J84.10 Pulmonary fibrosis, unspecified; L97.529 Non-pressure chronic ulcer of other part of left foot with unspecified severity; I25.10 Atherosclerotic heart disease of native coronary artery without angina pectoris; M20.42 Other hammer toe(s) (acquired), left foot; S91.332A Puncture wound without foreign body, left foot, initial encounter; R51 Headache; B95.1 Streptococcus, group B, as the cause of diseases classified elsewhere; Z79.84 Long term (current) use of oral hypoglycemic drugs; Z95.5 Presence of coronary angioplasty implant and graft
CPT/HCPCS: 36569; 71010; 73720; 76937; 80048; 80053; 80202; 82565; 82948; 83605; 83735; 85025; 85610; 85652; 85730; 86140; 87015; 87040; 87070; 87102; 87116; 87205; 87206; 88304; 88305; 88307; 88311; 93005; 96365; 96368; 96375; A9579; J0690; J1170; J1650; J1885; J2250; J2270; J2405; J2543; J3010; J3370; J7030; J7040; J7050; L3260

== ENCOUNTER 2018-06-17 18:30 | Inpatient (IN) ==
--- NOTE | 2018-06-17 21:40 | ED ---
HPI General Chief complaint: Extremity Injury, Lower Stated complaint: Poss Foot Infection/phy sent Time Seen by Provider: 06/17/18 21:18 Source: patient Limitations: no limitations History of Present Illness HPI narrative: The patient is a 67 year old male who presents to the [facility] emergency department with a history of a week ago noticing some redness and soreness to the left foot. The patient reports that he had an infection in the left foot that required surgical debridement with Dr. Heaton in April. The patient reports that he followed up with Dr. Heaton, a local glue mixer yesterday regarding the new symptoms. He reports that an area was debrided along the ball of the foot and the patient was started onto antibiotic. The patient reports that he was not able to get the antibiotic prescription filled until this morning. He reports that he started on the 2 antibiotic prescriptions, however he does not know the names. He reports that the area of redness and swelling was spreading up into the leg, therefore he called Dr. Heaton back again today and was told to come to the emergency department. He denies having any known fevers or chills. He denies having any nausea, vomiting , or diarrhea. On review of systems otherwise, the patient denies having any worsening cough, congestion, neck pain, chest pain, worsening shortness of breath (h/o pulmonary fibrosis), abdominal pain,urinary symptoms, or neurologic symptoms. Related Data Home Medications Medication Instructions Recorded Confirmed allopurinol 300 mg PO DAILY 06/17/18 06/17/18 citalopram 40 mg PO DAILY 06/17/18 06/17/18 dextroamphetamine 20 mg PO BID 06/17/18 06/17/18 fluticasone 2 spray INTRANASAL DAILY 06/17/18 06/17/18 hydrocodone-acetaminophen 1 tab PO Q4-6H PRN MDD 8 06/17/18 06/17/18 lamotrigine 150 mg PO DAILY 06/17/18 06/17/18 loratadine-pseudoephedrine 1 tab PO DAILY 06/17/18 06/17/18 [Claritin-D 24 Hour] magnesium oxide 400 mg PO DAILY 06/17/18 06/17/18 metformin 1,000 mg PO DAILY 06/17/18 06/17/18 pioglitazone 15 mg PO DAILY 06/17/18 06/17/18 sumatriptan succinate 2 tab PO DAILY PRN MDD 8 tab 06/17/18 06/17/18 Allergies Allergy/AdvReac Type Severity Reaction Status Date / Time No Known Allergies Allergy Uncoded 04/24/17 12:18 Review of Systems ROS: all other systems reviewed are negative [facility] Medical History Medical History Diabetes mellitus (Acute) IPF (idiopathic pulmonary fibrosis) (Acute) Coronary artery disease (Acute) Surgical History Surgical History History of lung biopsy (Acute) History of neck surgery (Acute) S/P foot surgery, left (Acute) Stented coronary artery (Acute) Social History Social History Substance History: No History of Abuse Second Hand Smoke Exposure: No Smoking Status: Never smoker How Often Do You Have a Drink Containing Alcohol: Monthly or less Recent Travel in [facility] within the Last 8 Weeks: No Recent Out of Country Travel within the Last 8 Weeks: No Immunization History Tetanus Immunization: <5 Years Hx Influenza Vaccine This Season: No Exam Const General: cooperative, no acute distress and well developed Nutritional Appearance: well nourished Orientation: alert, awake and oriented x3 [facility] Head: normocephalic and atraumatic Nose: no nasal discharge and no epistaxis Mouth: oral mucosae normal and moist mucous membranes Throat: posterior oropharynx normal and uvula midline Eyes Sclera: normal sclerae Pupils: PERRL Neck Neck: no meningeal signs, trachea midline and no JVD Resp Effort & Inspection: no use of accessory muscles Auscultation: clear to auscultation bilaterally Cardio Rate: regular rate Rhythm: regular rhythm Heart Sounds: no murmurs GI Inspection: non-distended Palpation: soft, no hepatosplenomegaly and nontender Skin General: dry skin (warm) Neuro General: alert, awake, oriented x3 and other (Grossly nonfocal.) Speech: speech normal Motor: no movement abnormalities noted Extrem General: abnormal to inspection (The area of interest is the left lower extremity. The patient has trace edema noted, worse over the foot with erythema and edema of the second through fifth digit. Patient has a bandage in place over the ball of the foot. This was gently removed. The patient has a 3 x 2 area of ulceration. There is no active drainage. The patient reports tenderness along the second toe. The patient has full range of motion. The patient has less than 3 second capillary refill. Patient has 2+ pulses in all 4 extremities.), no clubbing, no cyanosis and no edema Psych Mood: congruent mood Affect: normal affect Judgment: judgment good Course Consultations Consultation #1: The patient's case including history, pertinent physical examination findings, and laboratory studies were discussed with Dr. Gallegos, covering for Dr. Heaton. She requested that the patient have an MRI of the left foot and ankle brachial index these it was agreed that the patient would be admitted to the [facility] hospitalist service. Consultation #2: The patient's case including history, pertinent physical examination findings, and laboratory studies were discussed with Dr. Delgado. It was agreed that the patient would be admitted to the [facility] hospitalist service. Initial Documented Vital Signs Temperature 97.9 F 06/17/18 19:24 Pulse Rate 95 H 06/17/18 19:24 Respiratory Rate 16 06/17/18 19:24 Blood Pressure 134/84 06/17/18 19:24 Pulse Oximetry 93 L 06/17/18 19:24 Last Documented Vital Signs Temperature 97.7 F 06/18/18 00:00 Pulse Rate 83 06/18/18 00:00 Respiratory Rate 20 06/18/18 00:00 Blood Pressure 142/74 H 06/18/18 00:00 Pulse Oximetry 94 L 06/18/18 00:00 Medical Decision Making MDM Narrative Medical decision making narrative: During the course of the patient's emergency department visit, the patient's history, examination, and differential diagnosis were reviewed with the patient. The patient was placed on a rn cardiac with oximetry and frequent blood pressure monitoring. The patient had IV access obtained and blood work sent for analysis. A diagnostic evaluation was started regarding the patient's left foot pain and erythema. A call was placed out to the glue mixer on-call for Dr. Heaton. I spoke to . She requested that the patient have an MRI of the left foot ordered along with ankle brachial index ease. She requested that the patient be started on IV antibiotic. The group will see the patient in the morning. She requested that the patient be admitted to the hospitalist service. The patient was initially provided normal saline a 500 mL bolus 1, Zosyn 3.375 g IV, vancomycin 1 g IV. The patient's diagnostic studies are remarkable for normal white count at 10.9, hemoglobin 11.9, neutrophils 71.3, PT 11.2, PTT 27.1, chemistries remarkable for a BUN of 22, creatinine of 1.67 which is increased from 0.98 on last evaluation in April. The patient's glucose is 115. The patient sedimentation rate is elevated at 61. The patient's results were discussed with the patient, including the plan of care. I explained that further testing and/ or monitoring is indicated based on the patient's history, examination, and/ or laboratory findings. Therefore, I recommended admission for additional evaluation. The patient expressed understanding and was agreeable with this plan. The patient was admitted to the hospital in guarded condition and sent to a bed under the care of the [facility] hospitalist service. Medical Screen Exam Complete: Yes Emergency Medical Condition: Yes Differential Diagnosis Differential Diagnosis: Cellulitis, versus deep foot abscess, versus osteomyelitis Medical Records Medical records reviewed: Yes I reviewed the patient's medical records. Lab Data Result diagrams: 06/17/18 21:48 06/17/18 21:48 Lab Results 06/17/18 06/17/18 06/17/18 Range/Units 21:48 21:48 21:48 WBC 10.9 (4.0-11.0) th/mm3 RBC 3.87 L (4.50-5.90) mil/mm3 Hgb 11.9 L (13.0-17.0) gm/dL Hct 36.4 L (39.0-51.0) % MCV 93.9 (80.0-100.0) fL MCH 30.8 (27.0-34.0) pg MCHC 32.8 (32.0-36.0) % RDW 14.5 (11.6-17.2) % Plt Count 185 (150-450) th/mm3 MPV 9.3 (7.0-11.0) fL Neut % (Auto) 71.3 H (16.0-70.0) % Lymph % (Auto) 18.4 (9.0-44.0) % Glades % (Auto) 4.8 (0.0-8.0) % Eos % (Auto) 4.9 H (0.0-4.0) % Baso % (Auto) 0.6 (0.0-2.0) % Neut # (Auto) 7.7 (1.8-7.7) th/mm3 Lymph # (Auto) 2.0 (1.0-4.8) th/mm3 Glades # (Auto) 0.5 (0.0-0.9) th/mm3 Eos # (Auto) 0.5 H (0.0-0.4) th/mm3 Baso # (Auto) 0.1 (0.0-0.2) th/mm3 WBC Differential . Differential Comment Auto diff final ESR (0-20) mm/hr PT 11.2 (9.8-11.6) sec INR 1.1 Ratio APTT 27.1 (24.3-30.1) sec Sodium 137 (136-145) meq/L Potassium 4.8 (3.5-5.1) meq/L Chloride 100 (98-107) meq/L Carbon Dioxide 28.4 (21.0-32.0) meq/L Anion Gap 9 (5-15) meq/L BUN 22 H (7-18) mg/dL Creatinine 1.67 H (0.60-1.30) mg/dL Estimated GFR 41 L (>89) mL/min POC Glucose (68-110) mg/dl Random Glucose 115 H (74-106) mg/dL Lactic Acid (0.4-2.0) mmol/L Calcium 9.3 (8.5-10.1) mg/dL Magnesium 1.6 (1.5-2.5) mg/dL Total Bilirubin 0.3 (0.2-1.0) mg/dL AST 29 (15-37) U/L ALT 33 (12-78) U/L Alkaline Phosphatase 80 (45-117) U/L Troponin I Less than 0.02 L (0.02-0.05) ng/mL Total Protein 7.8 (6.4-8.2) g/dL Albumin 3.6 (3.4-5.0) g/dL Urine Color (Yellw/Straw) Urine Clarity (Clear) Urine pH (5.0-8.5) Ur Specific [place] (1.002-1.035) Urine Protein (Neg-Trace) mg/dL Urine Glucose (UA) (Negative) mg/dL Urine Ketones (Negative) mg/dL Urine Occult Blood (Negative) Urine Nitrate (Negative) Urine Bilirubin (Negative) Urine Urobilinogen (Less than 2) mg/dL Ur Leukocyte Esterase (Negative) Urine RBC (0-3) /hpf Urine WBC (0-5) /hpf Urine Mucus (Occasional) /lpf Micro UA Comment Ur Microscopic Review Urine Culture Comments 06/17/18 06/17/18 06/17/18 Range/Units 21:48 21:48 23:18 WBC (4.0-11.0) th/mm3 RBC (4.50-5.90) mil/mm3 Hgb (13.0-17.0) gm/dL Hct (39.0-51.0) % MCV (80.0-100.0) fL MCH (27.0-34.0) pg MCHC (32.0-36.0) % RDW (11.6-17.2) % Plt Count (150-450) th/mm3 MPV (7.0-11.0) fL Neut % (Auto) (16.0-70.0) % Lymph % (Auto) (9.0-44.0) % Glades % (Auto) (0.0-8.0) % Eos % (Auto) (0.0-4.0) % Baso % (Auto) (0.0-2.0) % Neut # (Auto) (1.8-7.7) th/mm3 Lymph # (Auto) (1.0-4.8) th/mm3 Glades # (Auto) (0.0-0.9) th/mm3 Eos # (Auto) (0.0-0.4) th/mm3 Baso # (Auto) (0.0-0.2) th/mm3 WBC Differential Differential Comment ESR 61 H (0-20) mm/hr PT (9.8-11.6) sec INR Ratio APTT (24.3-30.1) sec Sodium (136-145) meq/L Potassium (3.5-5.1) meq/L Chloride (98-107) meq/L Carbon Dioxide (21.0-32.0) meq/L Anion Gap (5-15) meq/L BUN (7-18) mg/dL Creatinine (0.60-1.30) mg/dL Estimated GFR (>89) mL/min POC Glucose (68-110) mg/dl Random Glucose (74-106) mg/dL Lactic Acid 1.6 (0.4-2.0) mmol/L Calcium (8.5-10.1) mg/dL Magnesium (1.5-2.5) mg/dL Total Bilirubin (0.2-1.0) mg/dL AST (15-37) U/L ALT (12-78) U/L Alkaline Phosphatase (45-117) U/L Troponin I (0.02-0.05) ng/mL Total Protein (6.4-8.2) g/dL Albumin (3.4-5.0) g/dL Urine Color Yellow (Yellw/Straw) Urine Clarity Clear (Clear) Urine pH 6.0 (5.0-8.5) Ur Specific [place] 1.013 (1.002-1.035) Urine Protein Negative (Neg-Trace) mg/dL Urine Glucose (UA) Negative (Negative) mg/dL Urine Ketones Negative (Negative) mg/dL Urine Occult Blood Negative (Negative) Urine Nitrate Negative (Negative) Urine Bilirubin Negative (Negative) Urine Urobilinogen Less than 2 (Less than 2) mg/dL Ur Leukocyte Esterase Negative (Negative) Urine RBC 1 (0-3) /hpf Urine WBC 1 (0-5) /hpf Urine Mucus Few H (Occasional) /lpf Micro UA Comment Cath-culture not ind Ur Microscopic Review Not Reportable Urine Culture Comments Cath-cult not ind 06/18/18 Range/Units 00:40 WBC (4.0-11.0) th/mm3 RBC (4.50-5.90) mil/mm3 Hgb (13.0-17.0) gm/dL Hct (39.0-51.0) % MCV (80.0-100.0) fL MCH (27.0-34.0) pg MCHC (32.0-36.0) % RDW (11.6-17.2) % Plt Count (150-450) th/mm3 MPV (7.0-11.0) fL Neut % (Auto) (16.0-70.0) % Lymph % (Auto) (9.0-44.0) % Glades % (Auto) (0.0-8.0) % Eos % (Auto) (0.0-4.0) % Baso % (Auto) (0.0-2.0) % Neut # (Auto) (1.8-7.7) th/mm3 Lymph # (Auto) (1.0-4.8) th/mm3 Glades # (Auto) (0.0-0.9) th/mm3 Eos # (Auto) (0.0-0.4) th/mm3 Baso # (Auto) (0.0-0.2) th/mm3 WBC Differential Differential Comment ESR (0-20) mm/hr PT (9.8-11.6) sec INR Ratio APTT (24.3-30.1) sec Sodium (136-145) meq/L Potassium (3.5-5.1) meq/L Chloride (98-107) meq/L Carbon Dioxide (21.0-32.0) meq/L Anion Gap (5-15) meq/L BUN (7-18) mg/dL Creatinine (0.60-1.30) mg/dL Estimated GFR (>89) mL/min POC Glucose 109 (68-110) mg/dl Random Glucose (74-106) mg/dL Lactic Acid (0.4-2.0) mmol/L Calcium (8.5-10.1) mg/dL Magnesium (1.5-2.5) mg/dL Total Bilirubin (0.2-1.0) mg/dL AST (15-37) U/L ALT (12-78) U/L Alkaline Phosphatase (45-117) U/L Troponin I (0.02-0.05) ng/mL Total Protein (6.4-8.2) g/dL Albumin (3.4-5.0) g/dL Urine Color (Yellw/Straw) Urine Clarity (Clear) Urine pH (5.0-8.5) Ur Specific [place] (1.002-1.035) Urine Protein (Neg-Trace) mg/dL Urine Glucose (UA) (Negative) mg/dL Urine Ketones (Negative) mg/dL Urine Occult Blood (Negative) Urine Nitrate (Negative) Urine Bilirubin (Negative) Urine Urobilinogen (Less than 2) mg/dL Ur Leukocyte Esterase (Negative) Urine RBC (0-3) /hpf Urine WBC (0-5) /hpf Urine Mucus (Occasional) /lpf Micro UA Comment Ur Microscopic Review Urine Culture Comments Imaging Data Radiologist's impression: Chest X-Ray 06/17/18 21:33 CONCLUSION: Pulmonary fibrosis appears slightly worse over the past year. No definite acute infiltrate demonstrated. Discharge Plan Discharge Disposition Patient Disposition: 30 Still Patient Discharge Details Diagnosis: Ulcer of foot, Cellulitis Physicians Team ED Provider: Caridad Shipman Primary Care Provider: Katherin Greene Attending Provider: Héctor Vallejo Other Providers: Delisa Gallegos Discharge Interventions Interventions: ED Discharge Assessment Last Done: 06/18/18 00:06 Vital Signs Last Done: 06/17/18 21:35 Status ED Status: Left Department Discharge Information Discharge Date/Time: 06/18/18 00:27
[2018-06-17 22:03] LABS: Hematocrit 36.4 % (39.0-51.0); Hemoglobin 11.9 gm/dL (13.0-17.0); Mean Corpuscular HGB Conc 32.8 % (32.0-36.0); Mean Corpuscular Hemoglobin 30.8 pg (27.0-34.0); Mean Corpuscular Volume 93.9 fL (80.0-100.0); Mean Platelet Volume 9.3 fL (7.0-11.0); Platelet Count 185 th/mm3 (150-450); Red Blood Count 3.87 mil/mm3 (4.50-5.90); Red Cell Distribution Width 14.5 % (11.6-17.2); White Blood Count 10.9 th/mm3 (4.0-11.0)
[2018-06-17 22:04] LABS: Baso # (Auto) 0.1 th/mm3 (0.0-0.2); Baso % (Auto) 0.6 % (0.0-2.0); Eos # (Auto) 0.5 th/mm3 (0.0-0.4); Eos % (Auto) 4.9 % (0.0-4.0); Lymph % (Auto) 18.4 % (9.0-44.0); Mono # (Auto) 0.5 th/mm3 (0.0-0.9); Mono % (Auto) 4.8 % (0.0-8.0); Neut # (Auto) 7.7 th/mm3 (1.8-7.7); Neut % (Auto) 71.3 % (16.0-70.0)
[2018-06-17] MEDS ORDERED: Vancomycin Inj 1 GM/200 ML PIGGYBACK IV.SIG ONE (22:10)
[2018-06-17] MEDS ORDERED: Sodium Chlor 0.9% Inj 500 ML IV.SIG ONE (22:10)
[2018-06-17] MEDS ORDERED: Piperacil/Tazo 3.375 GM Premix 50 ML IV.SIG ONE (22:10)
[2018-06-17 22:13] LABS: Activated Partial Thrombo Time 27.1 sec (24.3-30.1); INR 1.1 Ratio; Prothrombin Time 11.2 sec (9.8-11.6)
--- NOTE | 2018-06-17 22:13 | XR ---
EXAM DATE: 06/17/2018 9:49 PM EDT AGE/SEX: 67 years / Male INDICATIONS: Fever, cough, congestion. CLINICAL DATA: This is the patient's initial encounter. Patient reports that signs and symptoms have been present for 3 days and indicates a pain score of 0/10. MEDICAL/SURGICAL HISTORY: Diabetes mellitus type II. Pulmonary fibrosis. Coronary artery stent . COMPARISON: [facility] [place], CHEST SINGLE AP, 04/24/2017. . FINDINGS: Basilar and peripheral predominance chronic interstitial opacities are again seen of both lungs. Thes e appear modestly worse in the interim. No definite acute infiltrate demonstrated. No pleural effusio n or pneumothorax seen. Cardiomediastinal silhouette remains within normal limits. CONCLUSION: Pulmonary fibrosis appears slightly worse over the past year. No definite acute infiltrate demonstrat ed. Electronically signed by: Joseph Arellano MD 06/17/2018 10:12 PM EDT
[2018-06-17 22:17] LABS: Albumin 3.6 g/dL (3.4-5.0); Anion Gap 9 meq/L (5-15); Aspartate Aminotransferase 29 U/L (15-37); Blood Urea Nitrogen 22 mg/dL (7-18); Calcium 9.3 mg/dL (8.5-10.1); Carbon Dioxide 28.4 meq/L (21.0-32.0); Chloride 100 meq/L (98-107); Glomerular Filtration Rate 41 mL/min (>89); Glucose,Random 115 mg/dL (74-106); Magnesium 1.6 mg/dL (1.5-2.5); Potassium 4.8 meq/L (3.5-5.1); Sodium 137 meq/L (136-145)
[2018-06-17 22:18] LABS: Alanine Aminotransferase 33 U/L (12-78)
[2018-06-17 22:22] LABS: Alkaline Phosphatase 80 U/L (45-117); Total Protein 7.8 g/dL (6.4-8.2)
[2018-06-17] MEDS ORDERED: Vancomycin Inj 1,000 MG in Sodium Chlor 0.9% Inj 250 ML IV.SIG ONE (23:00)
[2018-06-17] MEDS ORDERED: Dextrose 50% in Water 50 ML Vial IV.PUSH PRN (23:07)
[2018-06-17] MEDS ORDERED: Bisacodyl 10 MG Supp RECTAL PRN (23:09)
[2018-06-17] MEDS ORDERED: Temazepam 15 MG Capsule PO PRN (23:09)
[2018-06-17] MEDS ORDERED: Vancomycin Consult Pharmacy 1 EACH OTHER SCH (23:15)
--- NOTE | 2018-06-17 23:26 | P.HP ---
History of Present Illness Service: [facility] Hospitalist Primary Care Physician: Katherin Greene MD Chief Complaint: sent by podiatry for admission History of Present Illness: The patient is a 67 year old male who presents to the [facility] emergency department with a history of a week ago noticing some redness and soreness to the left foot. The patient reports that he had an infection in the left foot that required surgical debridement with Dr. Heaton in April. The patient reports that he followed up with Dr. Heaton, a local mower sharpener yesterday regarding the new symptoms. He reports that an area was debrided along the ball of the foot and the patient was started onto antibiotic. The patient reports that he was not able to get the antibiotic prescription filled until this morning. He reports that he started on the 2 antibiotic prescriptions, however he does not know the names. He reports that the area of redness and swelling was spreading up into the leg, therefore he called Dr. Heaton back again today and was told to come to the emergency department. He denies having any known fevers or chills. He denies having any nausea, vomiting, or diarrhea. On review of systems otherwise, the patient denies having any worsening cough, congestion, neck pain, chest pain, worsening shortness of breath (h/o pulmonary fibrosis), abdominal pain,urinary symptoms, or neurologic symptoms. Of note was in hospital for infection to foot and required surgical debridement and IV antibiotics last year . The ulcer on the foot began after patient stepped on something. Podiatry recomends starting IV antibiotics and MRI of foot. - Diagnosis (1) Cellulitis (2) Ulcer of foot (3) Diabetes Inpatient Certification: I certify that the inpatient services were ordered in accordance with Medicare regulations governing the order. This includes certification that hospital inpatient services are reasonable and necessary and in the case of services not specified as inpatient-only under 42 CFR 419.22(n), that they are appropriately provided as inpatient services in accordance to with the 2-midnight benchmark under 43 CFR 412.3(e) Estimated Total Length of Stay (Days): 3 Plans for Post Hospital Care: Not yet determined Review of Systems All other systems reviewed negative except as stated in HPI [facility] - History History Provided By: Patient - Medical History Medical History: Medical History (Last Reviewed 06/17/18 @ 22:02 by Caridad Shipman MD) Diabetes mellitus IPF (idiopathic pulmonary fibrosis) Coronary artery disease - Surgical History Surgical History: Surgical History (Last Reviewed 06/17/18 @ 22:02 by Caridad Shipman MD) History of lung biopsy History of neck surgery S/P foot surgery, left Stented coronary artery - Tobacco History Second Hand Smoke Exposure: No Tobacco Use In Past 30 Days: No Smoking Status: Never smoker - Alcohol History How Often Do You Have a Drink Containing Alcohol: Monthly or less - Substance Use History Substance History: No History of Abuse - Travel History Recent Travel in the [place] Within the Last 8 Weeks: No Recent Travel Out of the Country Within the Last 8 Weeks: No - Immunization History Tetanus Immunization: <5 Years Hx Influenza Vaccine This Season: No Medications and Allergies Active Medications: Active Medications Hydrocodone Bitart/Acetaminophen ([place] 10/325) 1 tab PO Q4-6H PRN PRN Reason: Acute Pain Allopurinol (Zyloprim) 300 mg PO DAILY [facility] Bisacodyl (Dulcolax Supp) 10 mg RECTAL DAILY PRN PRN Reason: SEVERE CONSITIPATION Citalopram Hydrobromide (Celexa) 40 mg PO DAILY [facility] Dextrose (D50w Vial) 50 ml IV.PUSH UNSCH PRN PRN Reason: PER HYPOGLYCEMIA PROTOCOL Fluticasone Propionate (Flonase Nasal [place]) 2 spray EACH NARE DAILY [facility] Glucagon (Glucagon Inj) 1 mg OTHER PRN PRN PRN Reason: for Hypoglycemia Protocol Vancomycin HCl 1,000 mg/ (Sodium Chloride) 250 mls @ 250 mls/hr IV.SIG ONCE ONE Stop: 06/17/18 23:59 Last Admin: 06/17/18 22:59 Dose: 250 mls/hr Piperacillin/Tazobactam/Dextrose (Zosyn 3.375 Gm Premix) 50 mls @ 100 mls/hr IV.SIG Q6H [facility] Pharmacy Profile Note (Vancomycin Consult Pharmacy) 0 mls @ 0 mls/hr OTHER UNSCH [facility] Insulin Aspart (Novolog Insulin [place] Sugar Inj) 0 unit SQ Q6HR [facility]; Protocol Lactulose (Lactulose Liq) 30 ml PO DAILY PRN PRN Reason: SEVERE CONSITIPATION Loratadine/Pseudoephedrine Sulfate (Claritin-D 12 Hour Allergy & Congestion) 1 tab PO DAILY [facility] Magnesium Oxide (Mag-Ox) 400 mg PO DAILY [facility] Non-Formulary Medication (Dextroamphetamine [Dextroamphetamine]) 20 mg PO BID [facility] Non-Formulary Medication (Lamotrigine [Lamotrigine]) 150 mg PO DAILY [facility] Pioglitazone HCl (Actos) 15 mg PO DAILY [facility] Senna/Docusate Sodium (Merary-Colace) 1 tab PO BID [facility] Sennosides (Senokot) 17.2 mg PO Q12H PRN PRN Reason: Moderate Constipation Temazepam (Restoril) 15 mg PO HS PRN PRN Reason: INSOMNIA Allergies Allergy/AdvReac Type Severity Reaction Status Date / Time No Known Allergies Allergy Uncoded 04/24/17 12:18 Home Medications Medication Instructions Recorded Confirmed Type allopurinol 300 mg PO DAILY 06/17/18 06/17/18 History citalopram 40 mg PO DAILY 06/17/18 06/17/18 History dextroamphetamine 20 mg PO BID 06/17/18 06/17/18 History fluticasone 2 spray INTRANASAL DAILY 06/17/18 06/17/18 History hydrocodone-acetaminophen 1 tab PO Q4-6H PRN MDD 8 06/17/18 06/17/18 History lamotrigine 150 mg PO DAILY 06/17/18 06/17/18 History loratadine-pseudoephedrine 1 tab PO DAILY 06/17/18 06/17/18 History [Claritin-D 24 Hour] magnesium oxide 400 mg PO DAILY 06/17/18 06/17/18 History metformin 1,000 mg PO DAILY 06/17/18 06/17/18 History pioglitazone 15 mg PO DAILY 06/17/18 06/17/18 History sumatriptan succinate 2 tab PO DAILY PRN MDD 8 tab 06/17/18 06/17/18 History Exam Vital signs: Vital Signs 06/17/18 19:24 06/17/18 21:35 Temperature 97.9 F Pulse Rate 95 H 86 Respiratory Rate 16 18 Blood Pressure 134/84 177/106 H Pulse Oximetry 93 L 97 Intake & Output 06/17/18 06/17/18 06/18/18 06:59 18:59 06:59 Weight 86 kg Narrative: GENERAL: SKIN: Warm and dry. HEAD: Atraumatic. Normocephalic. EYES: Pupils equal and round. No scleral icterus. No injection or drainage. ENT: No nasal bleeding or discharge. Mucous membranes pink and moist. NECK: Trachea midline. No JVD. CARDIOVASCULAR: Regular rate and rhythm. RESPIRATORY: No accessory muscle use. Clear to auscultation. Breath sounds equal bilaterally. GASTROINTESTINAL: Abdomen soft, non-tender, nondistended. Hepatic and splenic margins not palpable. MUSCULOSKELETAL: Extremities without clubbing, cyanosis, trace edema. No obvious deformities. edema worse over foot with erythema and edema 2-5th digit 3 by 2 ulceration ball of foot no drainage but tender on palpation NEUROLOGICAL: Awake and alert. No obvious cranial nerve deficits. Motor grossly within normal limits. Five out of 5 muscle strength in the arms and legs. Normal speech. PSYCHIATRIC: Appropriate mood and affect; insight and judgment normal. Results - Labs CBC & Chem 7: 06/17/18 21:48 06/17/18 21:48 Labs: Laboratory Results - last 24 hr 06/17/18 06/17/18 06/17/18 21:48 21:48 21:48 WBC 10.9 RBC 3.87 L Hgb 11.9 L Hct 36.4 L MCV 93.9 MCH 30.8 MCHC 32.8 RDW 14.5 Plt Count 185 MPV 9.3 Neut % (Auto) 71.3 H Lymph % (Auto) 18.4 [place] % (Auto) 4.8 Eos % (Auto) 4.9 H Baso % (Auto) 0.6 Neut # (Auto) 7.7 Lymph # (Auto) 2.0 [place] # (Auto) 0.5 Eos # (Auto) 0.5 H Baso # (Auto) 0.1 WBC Differential . Differential Comment Auto diff final ESR PT 11.2 INR 1.1 APTT 27.1 Sodium 137 Potassium 4.8 Chloride 100 Carbon Dioxide 28.4 Anion Gap 9 BUN 22 H Creatinine 1.67 H Estimated GFR 41 L Random Glucose 115 H Lactic Acid Calcium 9.3 Magnesium 1.6 Total Bilirubin 0.3 AST 29 ALT 33 Alkaline Phosphatase 80 Troponin I Less than 0.02 L Total Protein 7.8 Albumin 3.6 06/17/18 06/17/18 21:48 21:48 WBC RBC Hgb Hct MCV MCH MCHC RDW Plt Count MPV Neut % (Auto) Lymph % (Auto) [place] % (Auto) Eos % (Auto) Baso % (Auto) Neut # (Auto) Lymph # (Auto) [place] # (Auto) Eos # (Auto) Baso # (Auto) WBC Differential Differential Comment ESR 61 H PT INR APTT Sodium Potassium Chloride Carbon Dioxide Anion Gap BUN Creatinine Estimated GFR Random Glucose Lactic Acid 1.6 Calcium Magnesium Total Bilirubin AST ALT Alkaline Phosphatase Troponin I Total Protein Albumin - Imaging Impressions Chest X-Ray 06/17/18 21:33 CONCLUSION: Pulmonary fibrosis appears slightly worse over the past year. No definite acute infiltrate demonstrated. Caprini VTE Risk Assessment Caprini VTE Risk Assessment: Moderate/High Risk (score >= 2) Caprini Risk Assessment Model: Point Value = 1 Point Value = 2 Point Value = 3 Point Value = 5 Age 41-60 Minor surgery BMI > 25 kg/m2 Swollen legs Varicose veins or History of unexplained or recurrent spontaneous Oral contraceptives or hormone replacement Sepsis (< 1 month) Serious lung disease, including pneumonia (< 1 month) Abnormal pulmonary function Acute myocardial infarction Congestive heart failure (< 1 month) History of inflammatory bowel disease Medical patient at bed rest Age 61-74 Arthroscopic surgery Major open surgery (> 45 min) Laparoscopic surgery (> 45 min) Malignancy Confined to bed (> 72 hours) Immobilizing plaster cast Central venous access Age >= 75 History of VTE Family history of VTE Factor V Leiden Prothrombin [id number] Lupus anticoagulant Anticardiolipin antibodies Elevated serum homocysteine Heparin-induced thrombocytopenia Other congenital or acquired thrombophilia Stroke (< 1 month) Elective arthroplasty Hip, pelvis, or leg fracture Acute spinal cord injury (< 1 month) Prophylaxis Regimen: Total Risk Factor Score Risk Level Prophylaxis Regimen 0-1 Low Early ambulation 2 Moderate Order ONE of the following: *Sequential Compression Device (SCD) *Heparin 5000 units SQ BID 3-4 Higher Order ONE of the following medications: *Heparin 5000 units SQ TID *Enoxaparin/Lovenox 40 mg SQ daily (WT < 150 kg, CrCl > 30 mL/min) *Enoxaparin/Lovenox 30 mg SQ daily (WT < 150 kg, CrCl > 10-29 mL/min) *Enoxaparin/Lovenox 30 mg SQ BID (WT < 150 kg, CrCl > 30 mL/min) AND/OR *Sequential Compression Device (SCD) 5 or more Highest Order ONE of the following medications: *Heparin 5000 units SQ TID (Preferred with Epidurals) *Enoxaparin/Lovenox 40 mg SQ daily (WT < 150 kg, CrCl > 30 mL/min) *Enoxaparin/Lovenox 30 mg SQ daily (WT < 150 kg, CrCl > 10-29 mL/min) *Enoxaparin/Lovenox 30 mg SQ BID (WT < 150 kg, CrCl > 30 mL/min) AND *Sequential Compression Device (SCD) Assessment and Plan - Assessment (1) Cellulitis Code(s): L03.90 - Cellulitis, unspecified Status: Acute Plan: start IV vancomycin and zoysn follow up labs (2) Ulcer of foot Code(s): L97.509 - Non-pressure chronic ulcer of other part of unspecified foot with unspecified severity Status: Acute Plan: consult podiatry ER discussed case with them and they are already aware of patient MRI foot ordered (3) Diabetes Code(s): E11.9 - Type 2 diabetes mellitus without complications Status: Acute Plan: renal function slightly elevated and was normal on last blood test in past will hold metformin and use sliding scale - Plan continue home meds for depression and ADHD ,also sinus medications ,has chronic pulmonary fibrosis on no medications Code Status: full Discussed Condition With: patient and
[2018-06-17 23:36] LABS: Bilirubin,Urine Negative (Negative); Clarity,Urine Clear (Clear); Color,Urine Yellow (Yellw/Straw); Glucose,Urine (UA) Negative (Negative); Leukocyte Esterase,Urine Negative (Negative); Mucus,Urine Few /lpf (Occasional); Nitrite,Urine Negative (Negative); Specific Gravity,Urine 1.013 (1.002-1.035)
[2018-06-18] MEDS: NEED HT OTHER SCH ×3 (04:24→04:26)
[2018-06-18] MEDS: Insulin NovoLOG Aspart Correctional Sugar Inj SQ SCH ×4 (04:27→18:46)
[2018-06-18] MEDS: Piperacil/Tazo 3.375 GM Premix 50 ML IV.SIG SCH ×4 (06:16→21:53)
[2018-06-18] MEDS ORDERED: Gadobutrol PF 10 MMOL/10 ML Vial (for RAD) IV.SIG ONE (09:44)
--- NOTE | 2018-06-18 11:00 | MR ---
EXAM DATE: 06/18/2018 9:57 AM EDT AGE/SEX: 67 years / Male INDICATIONS: . Wound on distal left foot at medial MTPJ. CLINICAL DATA: This is the patient's subsequent encounter. Patient reports that signs and symptoms h ave been present for 1 week and indicates a pain score of 3/10. MEDICAL/SURGICAL HISTORY: Diabetes mellitus type II. Fusion, cervical. left foot surgery for sa me wound 1 year ago, cardiac stent, lung biopsy COMPARISON: No prior exams available for comparison. TECHNIQUE: Multiplanar, multisequence MRI examination was performed without contrast and after th e intravenous administration of 9.5 ml Gadavist (gadobutrol) single exam dose. FINDINGS: In the plantar aspect of the foot between the second and third MTP joints is an area of nonenhancemen t I suspect infection or necrosis. It extends to the plantar surface and measures up to 2.2 x 1.2 cm across. There is marked surrounding enhancement suggesting fibrous tissue. The area of nonenhancement extends to the lateral base of the second proximal phalangeal bone although this point I don't see a ny significant marrow replacement to confirm osteomyelitis. There is marked enhancement of the second and third proximal phalangeal bones on the postcontrast images. Prominent intermetatarsal bursa between the second third MTP joints. The enhancement and fluid extends into the plantar musculature proximally including marked enhancemen t around the second flexor tendon sheath with the possibility of additional infection. There is diffu se enhancement of the flexor digitorum brevis muscle as well. Marked dorsal soft tissue edema CONCLUSION: 1. Soft tissue area of nonenhancement in the plantar aspect of the foot between the second and third MTP joints as described above. The area of nonenhancement extends to the base of the second proximal phalangeal bone which does show some enhancement but no marrow replacement to confirm osteomyelitis. There is also impressive edema and enhancement within the plantar musculature and the second flexor tendon sheath raises the possibility of more proximal migration of the infection. Electronically signed by: Kuldeep Garrison MD 06/18/2018 10:58 AM EDT
[2018-06-18] MEDS: Allopurinol 300 MG Tablet PO SCH (11:17)
[2018-06-18] MEDS: Magnesium Oxide 400 MG Tablet PO SCH (11:17)
[2018-06-18] MEDS: Senna/Docusate Sodium 8.6/50 MG Tablet PO SCH ×2 (11:18→20:57)
[2018-06-18] MEDS: lamoTRIgine 100 MG Tablet PO SCH (11:18)
[2018-06-18] MEDS: Loratadine/Pseudoephedrine 12HR Tablet PO SCH (11:19)
--- NOTE | 2018-06-18 15:05 | P.PNIM ---
Subjective Interval history: Follow up: ulceration of foot with Cellulitis in a diabetic patient Physical Exam Vital signs: Vital Signs 06/17/18 19:24 06/17/18 21:35 06/17/18 23:41 Temperature 97.9 F Pulse Rate 95 H 86 81 Respiratory Rate 16 18 17 Blood Pressure 134/84 177/106 H 157/88 H Pulse Oximetry 93 L 97 06/18/18 00:00 06/18/18 07:47 06/18/18 12:00 Temperature 97.7 F 97.2 F L 97.8 F Pulse Rate 83 77 85 Respiratory Rate 20 18 18 Blood Pressure 142/74 H 130/77 153/83 H Pulse Oximetry 94 L 92 L 97 Intake & Output 06/17/18 06/18/18 06/18/18 18:59 06:59 18:59 Intake Total 1280 / 1280 Balance 1280 / 1280 Weight 95.6 kg Intake: IV 800 / 800 Zosyn 3.375 GM Premix 50 ML @ 50 / 50 100 mls/hr IV.SIG ONCE ONE Rx#: [id number] NS Inj 500 ML @ Wide Open IV. 500 / 500 SIG BOLUS ONE Rx#:[id number] Vancomycin Inj 1,000 MG In NS 250 / 250 Inj 250 ML @ 250 mls/hr IV.SIG ONCE ONE Rx#:[id number] Oral 480 / 480 Other: # Voids 2 Weight On Admission 95.1 kg Narrative: SKIN: Warm and dry. erythema and edema 2-5th digit 3 by 2 ulceration ball of foot no drainage HEAD: Atraumatic. Normocephalic. CARDIOVASCULAR: Regular rate and rhythm. RESPIRATORY: No accessory muscle use. Clear to auscultation. Breath sounds equal bilaterally. GASTROINTESTINAL: Abdomen soft, non-tender, nondistended. MUSCULOSKELETAL: Extremities without clubbing, cyanosis, trace edema. No obvious deformities. edema worse over foot with erythema and edema 2-5th digit 3 by 2 ulceration ball of foot no drainage but tender on palpation NEUROLOGICAL: Awake and alert. No obvious cranial nerve deficits. Motor grossly within normal limits. Five out of 5 muscle strength in the arms and legs. Normal speech. Results - Labs CBC & Chem 7: 06/17/18 21:48 06/20/18 05:58 Laboratory Results - last 24 hr 09/11/18 09/11/18 09/11/18 21:48 21:48 21:48 WBC 10.9 RBC 3.87 L Hgb 11.9 L Hct 36.4 L MCV 93.9 MCH 30.8 MCHC 32.8 RDW 14.5 Plt Count 185 MPV 9.3 Neut % (Auto) 71.3 H Lymph % (Auto) 18.4 [place] % (Auto) 4.8 Eos % (Auto) 4.9 H Baso % (Auto) 0.6 Neut # (Auto) 7.7 Lymph # (Auto) 2.0 [place] # (Auto) 0.5 Eos # (Auto) 0.5 H Baso # (Auto) 0.1 WBC Differential . Differential Comment Auto diff final ESR PT 11.2 INR 1.1 APTT 27.1 Sodium 137 Potassium 4.8 Chloride 100 Carbon Dioxide 28.4 Anion Gap 9 BUN 22 H Creatinine 1.67 H Estimated GFR 41 L POC Glucose Random Glucose 115 H Lactic Acid Calcium 9.3 Magnesium 1.6 Total Bilirubin 0.3 AST 29 ALT 33 Alkaline Phosphatase 80 Troponin I Less than 0.02 L Total Protein 7.8 Albumin 3.6 Urine Color Urine Clarity Urine pH Ur Specific [place] Urine Protein Urine Glucose (UA) Urine Ketones Urine Occult Blood Urine Nitrate Urine Bilirubin Urine Urobilinogen Ur Leukocyte Esterase Urine RBC Urine WBC Urine Mucus Micro UA Comment Ur Microscopic Review Urine Culture Comments 06/17/18 06/17/18 06/17/18 21:48 21:48 23:18 WBC RBC Hgb Hct MCV MCH MCHC RDW Plt Count MPV Neut % (Auto) Lymph % (Auto) [place] % (Auto) Eos % (Auto) Baso % (Auto) Neut # (Auto) Lymph # (Auto) [place] # (Auto) Eos # (Auto) Baso # (Auto) WBC Differential Differential Comment ESR 61 H PT INR APTT Sodium Potassium Chloride Carbon Dioxide Anion Gap BUN Creatinine Estimated GFR POC Glucose Random Glucose Lactic Acid 1.6 Calcium Magnesium Total Bilirubin AST ALT Alkaline Phosphatase Troponin I Total Protein Albumin Urine Color Yellow Urine Clarity Clear Urine pH 6.0 Ur Specific [place] 1.013 Urine Protein Negative Urine Glucose (UA) Negative Urine Ketones Negative Urine Occult Blood Negative Urine Nitrate Negative Urine Bilirubin Negative Urine Urobilinogen Less than 2 Ur Leukocyte Esterase Negative Urine RBC 1 Urine WBC 1 Urine Mucus Few H Micro UA Comment Cath-culture not ind Ur Microscopic Review Not Reportable Urine Culture Comments Cath-cult not ind 06/18/18 06/18/18 06/18/18 00:40 06:15 14:32 WBC RBC Hgb Hct MCV MCH MCHC RDW Plt Count MPV Neut % (Auto) Lymph % (Auto) [place] % (Auto) Eos % (Auto) Baso % (Auto) Neut # (Auto) Lymph # (Auto) [place] # (Auto) Eos # (Auto) Baso # (Auto) WBC Differential Differential Comment ESR PT INR APTT Sodium Potassium Chloride Carbon Dioxide Anion Gap BUN Creatinine Estimated GFR POC Glucose 109 125 H 185 H Random Glucose Lactic Acid Calcium Magnesium Total Bilirubin AST ALT Alkaline Phosphatase Troponin I Total Protein Albumin Urine Color Urine Clarity Urine pH Ur Specific [place] Urine Protein Urine Glucose (UA) Urine Ketones Urine Occult Blood Urine Nitrate Urine Bilirubin Urine Urobilinogen Ur Leukocyte Esterase Urine RBC Urine WBC Urine Mucus Micro UA Comment Ur Microscopic Review Urine Culture Comments Microbiology 06/17/18 21:48 Blood - Peripheral Aerobic Blood Culture - Preliminary No growth in 1 day 06/17/18 21:48 Blood - Peripheral Anaerobic Blood Culture - Preliminary No growth in 1 day 06/17/18 21:48 Blood - Peripheral Aerobic Blood Culture - Preliminary No growth in 1 day 06/17/18 21:48 Blood - Peripheral Anaerobic Blood Culture - Preliminary No growth in 1 day - Imaging Impressions Chest X-Ray 06/17/18 21:33 CONCLUSION: Pulmonary fibrosis appears slightly worse over the past year. No definite acute infiltrate demonstrated. Foot MRI 06/18/18 22:12 CONCLUSION: 1. Soft tissue area of nonenhancement in the plantar aspect of the foot between the second and third MTP joints as described above. The area of nonenhancement extends to the base of the second proximal phalangeal bone which does show some enhancement but no marrow replacement to confirm osteomyelitis. There is also impressive edema and enhancement within the plantar musculature and the second flexor tendon sheath raises the possibility of more proximal migration of the infection. Assessment and Plan - Assessment (1) Ulcer of foot Code(s): L97.509 - Non-pressure chronic ulcer of other part of unspecified foot with unspecified severity Status: Acute Plan: Ulceration of Left foot with cellulitis - continue IV vancomycin (with pharmacy to dose) and zoysn - consult podiatry ER discussed case with them and they are already aware of patient - Foot MRI 06/18/18 1. Soft tissue area of nonenhancement in the plantar aspect of the foot between the second and third MTP joints as described above. The area of nonenhancement extends to the base of the second proximal phalangeal bone which does show some enhancement but no marrow replacement to confirm osteomyelitis. There is also impressive edema and enhancement within the plantar musculature and the second flexor tendon sheath raises the possibility of more proximal migration of the infection. - await further recommendations per podiatry Diabetes - renal function slightly elevated and was normal on last blood test in past will hold metformin - accu checks ACHS with sliding scale coverage Pulmonary fibrosis - Per patient he is not on home medications for Pulmonary fibrosis - reports breathing is a baseline - recommend patient follow up with PCP and possible creative resource manager as an outpatient after DC - Chest X-Ray 06/17/18 21:33 reveals: Pulmonary fibrosis appears slightly worse over the past year. No definite acute infiltrate demonstrated. Patient also has chronic depression and ADHD: continue home meds DVT prophylaxis with SCDs - Attending Attestation Patient examined. Assessment and plan formulated with Doreen Obrien PA-C. I agree with the above. (1) Ulcer of foot Qualifiers: Laterality: left Non-pressure ulcer stage: with fat layer exposed Qualified Code(s): L97.522 - Non-pressure chronic ulcer of other part of left foot with fat layer exposed
--- NOTE | 2018-06-18 16:26 | P.CON ---
History of Present Illness Service: Foot and Ankle Surgery/Podiatry Consult date: 06/18/18 Reason for Consult: Left foot infection, submet 2 ulceration Primary Care Provider: Katherin Greene MD Family Provider: Katherin Greene MD Chief Complaint: sent by podiatry for admission History of Present Illness: Podiatry consulted for this 67-year-old male presented to the [place] emergency department with a history of increasing edema and erythema noted to left foot. Patient was seen in the office by Dr. Shetty and given oral antibiotics, which he failed as outpatient. He presented to the emergency department for IV antibiotics and potential surgical intervention. He denies any nausea vomiting fevers or chills at this time. present for evaluation. Review of Systems All other systems reviewed negative except as stated in [facility] - History History Provided By: Patient - Medical History Medical History: Medical History (Last Reviewed 06/18/18 @ 16:21 by Delisa Gallegos DPM) Diabetes mellitus IPF (idiopathic pulmonary fibrosis) Coronary artery disease - Surgical History Surgical History: Surgical History (Last Reviewed 06/18/18 @ 16:21 by Delisa Gallegos DPM) History of lung biopsy History of neck surgery S/P foot surgery, left Stented coronary artery - Tobacco History Second Hand Smoke Exposure: No Tobacco Use In Past 30 Days: No Smoking Status: Never smoker - Alcohol History How Often Do You Have a Drink Containing Alcohol: Monthly or less - Substance Use History Substance History: No History of Abuse - Travel History Recent Travel in the [place] Within the Last 8 Weeks: No Recent Travel Out of the Country Within the Last 8 Weeks: No - Immunization History Tetanus Immunization: <5 Years Hx Influenza Vaccine This Season: No Medications and Allergies Active Medications: Active Medications Hydrocodone Bitart/Acetaminophen ([place] 10/325) 1 tab PO Q4H PRN PRN Reason: Acute Pain Allopurinol (Zyloprim) 300 mg PO DAILY [facility] Last Admin: 06/18/18 11:17 Dose: 300 mg Bisacodyl (Dulcolax Supp) 10 mg RECTAL DAILY PRN PRN Reason: SEVERE CONSITIPATION Citalopram Hydrobromide (Celexa) 40 mg PO DAILY [facility] Last Admin: 06/18/18 11:18 Dose: 40 mg Dextroamphetamine Sulfate (Dextrostat) 20 mg PO BID [facility] Last Admin: 06/18/18 11:16 Dose: 20 mg Dextrose (D50w Vial) 50 ml IV.PUSH UNSCH PRN PRN Reason: PER HYPOGLYCEMIA PROTOCOL Fluticasone Propionate (Flonase Nasal [place]) 2 spray EACH NARE DAILY [facility] Glucagon (Glucagon Inj) 1 mg OTHER PRN PRN PRN Reason: for Hypoglycemia Protocol Piperacillin/Tazobactam/Dextrose (Zosyn 3.375 Gm Premix) 50 mls @ 100 mls/hr IV.SIG Q6H [facility] Last Admin: 06/18/18 06:16 Dose: 100 mls/hr Pharmacy Profile Note (Vancomycin Consult Pharmacy) 0 mls @ 0 mls/hr OTHER UNSCH [facility] Vancomycin HCl 1,750 mg/ (Sodium Chloride) 517.5 mls @ 250 mls/hr IV.SIG Q24H [facility] Insulin Aspart (Novolog Insulin Correctional Sugar Inj) 0 unit SQ Q6HR [facility]; Protocol Last Admin: 06/18/18 06:16 Dose: Not Given Lactulose (Lactulose Liq) 30 ml PO DAILY PRN PRN Reason: SEVERE CONSITIPATION Lamotrigine (Lamictal) 150 mg PO DAILY [facility] Last Admin: 06/18/18 11:18 Dose: 150 mg Loratadine/Pseudoephedrine Sulfate (Claritin-D 12 Hour Allergy & Congestion) 1 tab PO DAILY [facility] Last Admin: 06/18/18 11:19 Dose: 1 tab Magnesium Oxide (Mag-Ox) 400 mg PO DAILY [facility] Last Admin: 06/18/18 11:17 Dose: 400 mg Miscellaneous Information ([facility] Ordered Lab Info) 1 each OTHER ONCE [facility] Pioglitazone HCl (Actos) 15 mg PO DAILY [facility] Last Admin: 06/18/18 11:19 Dose: 15 mg Senna/Docusate Sodium (Merary-Colace) 1 tab PO BID [facility] Last Admin: 06/18/18 11:18 Dose: Not Given Sennosides (Senokot) 17.2 mg PO Q12H PRN PRN Reason: Moderate Constipation Temazepam (Restoril) 15 mg PO HS PRN PRN Reason: INSOMNIA Allergies Allergy/AdvReac Type Severity Reaction Status Date / Time No Known Allergies Allergy Uncoded 04/24/17 12:18 Home Medications Medication Instructions Recorded Confirmed Type allopurinol 300 mg PO DAILY 06/17/18 06/17/18 History citalopram 40 mg PO DAILY 06/17/18 06/17/18 History dextroamphetamine 20 mg PO BID 06/17/18 06/17/18 History fluticasone 2 spray INTRANASAL DAILY 06/17/18 06/17/18 History hydrocodone-acetaminophen 1 tab PO Q4-6H PRN MDD 8 06/17/18 06/17/18 History lamotrigine 150 mg PO DAILY 06/17/18 06/17/18 History loratadine-pseudoephedrine 1 tab PO DAILY 06/17/18 06/17/18 History [Claritin-D 24 Hour] magnesium oxide 400 mg PO DAILY 06/17/18 06/17/18 History metformin 1,000 mg PO DAILY 06/17/18 06/17/18 History pioglitazone 15 mg PO DAILY 06/17/18 06/17/18 History sumatriptan succinate 2 tab PO DAILY PRN MDD 8 tab 06/17/18 06/17/18 History Physical Exam Vital signs: Vital Signs 06/17/18 19:24 06/17/18 21:35 06/17/18 23:41 Temperature 97.9 F Pulse Rate 95 H 86 81 Respiratory Rate 16 18 17 Blood Pressure 134/84 177/106 H 157/88 H Pulse Oximetry 93 L 97 06/18/18 00:00 06/18/18 07:47 06/18/18 12:00 Temperature 97.7 F 97.2 F L 97.8 F Pulse Rate 83 77 85 Respiratory Rate 20 18 18 Blood Pressure 142/74 H 130/77 153/83 H Pulse Oximetry 94 L 92 L 97 06/18/18 15:50 Temperature 97.7 F Pulse Rate 92 H Respiratory Rate 17 Blood Pressure 160/76 H Pulse Oximetry 96 Intake & Output 06/17/18 06/18/18 06/18/18 18:59 06:59 18:59 Intake Total 1280 / 1280 Balance 1280 / 1280 Weight 95.6 kg Intake: IV 800 / 800 Zosyn 3.375 GM Premix 50 ML @ 50 / 50 100 mls/hr IV.SIG ONCE ONE Rx#: [id number] NS Inj 500 ML @ Wide Open IV. 500 / 500 SIG BOLUS ONE Rx#:[id number] Vancomycin Inj 1,000 MG In NS 250 / 250 Inj 250 ML @ 250 mls/hr IV.SIG ONCE ONE Rx#:[id number] Oral 480 / 480 Other: # Voids 2 Weight On Admission 95.1 kg Narrative: GENERAL: This is a well-nourished, well-developed patient, in no apparent distress. SKIN: Left submetatarsal 2 ulceration HEAD: Atraumatic. EYES: Pupils equal round and reactive. ENT: Airway patent. NECK: Trachea midline. RESPIRATORY: Nonlabored breathing. MUSCULOSKELETAL:. Negative Homans sign bilaterally. NEUROLOGICAL: Awake and alert. Normal speech. Lower extremity physical exam: Vascular: Dorsalis pedis 2/4, posterior tibial diminished. Capillary refill time within normal limits to digits 5 bilateral foot. Edema present to left foot Neuro: Gross sensation intact to bilateral lower extremity. Pinpoint sensation decreased. No hyperalgesia noted to bilateral lower extremity Dermatology: Submetatarsal 2 left foot ulceration with serous drainage, fibrotic necrotic base with hyperkeratotic borders. Associated if there are and edema noted. Erythema extending to metatarsophalangeal joint dorsally. Musculoskeletal: Tender to palpation to submetatarsal 2 ulceration left foot. Assessment and Plan - Plan 67-year-old male with left submetatarsal 2 ulceration, left foot infection Patient examined and evaluated with present bedside To OR tomorrow for left second metatarsal head excision with debridement irrigation of plantar sub-met 2 ulceration, to be performed by Dr. García Please obtain consent N.p.o. after midnight Will place wound care orders, apply Maxorb with dry sterile dressing Discussed in great detail alternatives complications benefits associated with procedure Will sign out care to Dr. García
[2018-06-18] MEDS: Vancomycin Inj 1,750 MG in Sodium Chlor 0.9% Inj 500 ML IV.SIG SCH (16:43)
[2018-06-19] MEDS: Insulin NovoLOG Aspart Correctional Sugar Inj SQ SCH ×4 (00:32→17:08)
[2018-06-19] MEDS: Piperacil/Tazo 3.375 GM Premix 50 ML IV.SIG SCH ×4 (04:31→23:39)
[2018-06-19] MEDS ORDERED: Metoprolol Tartrate 25 MG Tablet PO ONE (07:30)
[2018-06-19] MEDS ORDERED: Chlorhexidine Gluconate 2% 1 Pack (2 Cloths) TOPICAL ONE (07:30)
[2018-06-19] MEDS: Senna/Docusate Sodium 8.6/50 MG Tablet PO SCH ×2 (08:25→20:55)
[2018-06-19] MEDS: lamoTRIgine 100 MG Tablet PO SCH (08:27)
[2018-06-19] MEDS: Loratadine/Pseudoephedrine 12HR Tablet PO SCH (08:33)
[2018-06-19] MEDS: Allopurinol 300 MG Tablet PO SCH (08:34)
[2018-06-19] MEDS: Magnesium Oxide 400 MG Tablet PO SCH (08:34)
--- NOTE | 2018-06-19 09:43 | P.PNIM ---
Subjective Interval history: Follow up: Ulceration of Left foot with cellulitis Patient looking forward to surgery today offers no new concerns/complaints Physical Exam Vital signs: Vital Signs 06/18/18 12:00 06/18/18 15:50 06/18/18 20:00 Temperature 97.8 F 97.7 F 96.9 F L Pulse Rate 85 92 H 90 Respiratory Rate 18 17 17 Blood Pressure 153/83 H 160/76 H 166/85 H Pulse Oximetry 97 96 93 L 06/19/18 00:00 06/19/18 08:00 Temperature 98.5 F 97.9 F Pulse Rate 74 84 Respiratory Rate 18 22 Blood Pressure 116/68 164/81 H Pulse Oximetry 93 L 97 Intake & Output 06/18/18 06/19/18 06/19/18 18:59 06:59 18:59 Intake Total 1577.5 / 1577.5 650 / 650 50 / 50 Balance 1577.5 / 1577.5 650 / 650 50 / 50 Weight 95.6 kg Intake: IV 617.5 / 617.5 50 / 50 50 / 50 Zosyn 3.375 GM Premix 50 ML @ 100 / 100 50 / 50 50 / 50 100 mls/hr IV.SIG Q6H [facility] Rx#: [id number] Vancomycin Inj 1,750 MG In NS 517.5 / 517.5 Inj 500 ML @ 250 mls/hr IV.SIG Q24H [facility] Rx#:[id number] Oral 960 / 960 600 / 600 Other: # Voids 4 2 Narrative: General: 67 year old male patient, in no acute distress SKIN: Warm and dry. erythema and edema 2-5th digit 3 by 2 ulceration ball of foot no drainage HEAD: Atraumatic. Normocephalic. CARDIOVASCULAR: Regular rate and rhythm. RESPIRATORY: No accessory muscle use. Clear to auscultation. Breath sounds equal bilaterally. GASTROINTESTINAL: Abdomen soft, non-tender, nondistended. MUSCULOSKELETAL: Extremities without clubbing, cyanosis, trace edema. No obvious deformities. edema worse over foot with erythema and edema 2-5th digit 3 by 2 ulceration ball of foot no drainage but tender on palpation NEUROLOGICAL: Awake and alert. Five out of 5 muscle strength in the arms and legs. Normal speech. Results - Labs CBC & Chem 7: 06/17/18 21:48 06/19/18 04:35 Laboratory Results - last 24 hr 06/18/18 06/18/18 06/19/18 14:32 20:56 04:34 BUN Creatinine Estimated GFR POC Glucose 185 H 152 H 144 H 06/19/18 04:35 BUN 16 Creatinine 1.24 Estimated GFR 58 L POC Glucose Microbiology 06/17/18 21:48 Blood - Peripheral Aerobic Blood Culture - Preliminary No growth in 1 day 06/17/18 21:48 Blood - Peripheral Anaerobic Blood Culture - Preliminary No growth in 1 day 06/17/18 21:48 Blood - Peripheral Aerobic Blood Culture - Preliminary No growth in 1 day 06/17/18 21:48 Blood - Peripheral Anaerobic Blood Culture - Preliminary No growth in 1 day - Imaging Impressions Foot MRI 06/18/18 22:12 CONCLUSION: 1. Soft tissue area of nonenhancement in the plantar aspect of the foot between the second and third MTP joints as described above. The area of nonenhancement extends to the base of the second proximal phalangeal bone which does show some enhancement but no marrow replacement to confirm osteomyelitis. There is also impressive edema and enhancement within the plantar musculature and the second flexor tendon sheath raises the possibility of more proximal migration of the infection. Assessment and Plan - Assessment (1) Ulcer of foot Code(s): L97.509 - Non-pressure chronic ulcer of other part of unspecified foot with unspecified severity Status: Acute Plan: Ulceration of Left foot with cellulitis - continue IV vancomycin (with pharmacy to dose) and zoysn - consult podiatry ER discussed case with them and they are already aware of patient - Foot MRI 06/18/18 1. Soft tissue area of nonenhancement in the plantar aspect of the foot between the second and third MTP joints as described above. The area of nonenhancement extends to the base of the second proximal phalangeal bone which does show some enhancement but no marrow replacement to confirm osteomyelitis. There is also impressive edema and enhancement within the plantar musculature and the second flexor tendon sheath raises the possibility of more proximal migration of the infection. - also followed by podiatry, plan for left second metatarsal head excision with debridement irrigation of plantar sub-met 2 ulceration, to be performed by Dr. García today Diabetes - renal function slightly elevated and was normal on last blood test in past will hold metformin - accu checks ACHS with sliding scale coverage Pulmonary fibrosis - Per patient he is not on home medications for Pulmonary fibrosis - reports breathing is a baseline - recommend patient follow up with PCP and possible filenet architect as an outpatient after DC - Chest X-Ray 06/17/18 21:33 reveals: Pulmonary fibrosis appears slightly worse over the past year. No definite acute infiltrate demonstrated. Patient follow with Dr. Huertas outpatient Patient also has chronic depression and ADHD: continue home meds DVT prophylaxis with SCDs The exam, history, and the medical decision-making described in the above note were completed with the assistance of the mid-level provider. I reviewed and agree with the findings presented. I attest that I had a [id number] encounter with the patient on the same day, and personally performed and documented my assessment and findings in the medical record. plantar ulceration and cellulitis. going for second metatarsal head resection today. concern for recurrent ulceration due to pressure injury. cont abx and await surgical cx. (1) Ulcer of foot Qualifiers: Laterality: left Non-pressure ulcer stage: with fat layer exposed Qualified Code(s): L97.522 - Non-pressure chronic ulcer of other part of left foot with fat layer exposed
[2018-06-19] MEDS: Vancomycin Inj 1,750 MG in Sodium Chlor 0.9% Inj 500 ML IV.SIG SCH (12:44)
[2018-06-19] MEDS ORDERED: Lidocaine PF 1% Inj 5 ML Syringe INFILTRATN ONE (13:45)
[2018-06-19] MEDS ORDERED: Neomycin/Polymyxin G.U. Irrigant 1 ML Ampul ONE (14:06)
[2018-06-19] MEDS ORDERED: Misc Info for Pharmacy OTHER STA (15:02)
[2018-06-19] MEDS ORDERED: Naloxone Inj 0.4 MG/ML Vial IV.PUSH PRN (15:02)
[2018-06-19] MEDS ORDERED: fentaNYL Citrate Inj 100 MCG/2 ML Ampul ONE (15:10)
--- NOTE | 2018-06-19 15:10 | P.BOP ---
- Preoperative Diagnosis (1) Cellulitis (2) Ulcer of foot - Postoperative Diagnosis (1) Cellulitis (2) Ulcer of foot Date of procedure: 06/19/18 Procedure: Left 2nd metatarsal amputation Left 2nd metatarsal bone biopsy Anesthesia: GETA Surgeon: Liss García DPM Estimated blood loss (mL): 5 Tourniquet time (min): 30 (Left ankle) Pathology: none sent Condition: stable Disposition: PACU
--- NOTE | 2018-06-19 16:01 | XR ---
EXAM DATE: 06/19/2018 3:54 PM EDT AGE/SEX: 67 years / Male INDICATIONS: Post-op left foot. CLINICAL DATA: This is the patient's initial encounter. Patient reports that signs and symptoms have been present for 1 day and indicates a pain score of 0/10. MEDICAL/SURGICAL HISTORY: . Diabetes mellitus type II. Fusion, cervical. . Left foot surgery for same wound 1 year ago, cardiac stent, lung biopsy. COMPARISON: [facility] [place], MR FOOT LEFT W & W/O CONTRAST, 06/18/2018. . FINDINGS: Patient is status post amputation of the second metatarsal head. There is focal subcutaneous air at t he operative site. No fracture or dislocation. There is soft tissue swelling dorsally with bandaging in place. CONCLUSION: Post surgical changes second metatarsal head. Electronically signed by: Anton Whitley MD 06/19/2018 4:00 PM EDT
--- NOTE | 2018-06-19 18:36 | ECG ---
Date Performed: 06/19/2018 Time Performed: 09:10:47 PTAGE: 67 years EKG: Sinus rhythm NORMAL ECG PREVIOUS TRACING : 04/24/2017 17.20 Since the previous tracing, no significant change noted DOCTOR: Alon Acosta Interpretating Date/Time 06/19/2018 18:35:01
--- NOTE | 2018-06-19 22:58 | MP ---
cc: Liss García [facility] DATE OF OPERATION: 06/19/2018 PREOPERATIVE DIAGNOSIS: Left second digit chronic ulcer, left second digit cellulitis. POSTOPERATIVE DIAGNOSIS: Left second digit chronic ulcer, left second digit cellulitis. PROCEDURE: 1. 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 2. Left second digit bone biopsy second metatarsal. ANESTHESIOLOGIST: Dez Dinh MD ANESTHESIA: General. HEMOSTASIS: Left calf tourniquet at 250 mmHg for 30 minutes. ESTIMATED BLOOD LOSS: Less than 5 mL. MATERIALS: 2-0 Vicryl, 3-0 nylon. INJECTABLES: Postoperatively, 10 mL 0.25% Marcaine plain. BRIEF HISTORY: The patient is a 67-year-old male who is undergoing chronic wound care offloading, failed oral antibiotics and presented with worsening cellulitis, erythema and pain and redness. He was subsequently admitted to the hospital where he underwent a left second metatarsal head partial amputation where he was admitted to the hospital for a planned procedure. Risks, benefits, pros and cons were discussed. The patient freely consented to surgical intervention. No guarantees were given, nor implied. All questions were answered. PROCEDURE IN DETAIL: The patient was brought into the operating room, placed on the operating table in the supine position. After general anesthetic was administered, the left foot was prepped, scrubbed and draped in the usual aseptic manner. Timeout was carried out. Attention was then directed to the left foot where it was exsanguinated, tourniquet was inflated 250 mmHg on the left thigh. An incision was made dorsally over the second interspace, as he had a previous incision, likely from a previous neurectomy. This was used for skin and soft tissue, deepened down to the level of the periosteum. The extensor digitorum longus was retracted medially and the exposed second metatarsal head was viewed. The metatarsal was transected at the neck and the head was excised where a bone biopsy was carried out using a rongeur from the plantar aspect of the second metatarsal head. The bone was quite soft and yellow. Part of it was sent for biopsy and a culture was taken at the second metatarsal deep joint space. The second metatarsal was sent for pathology. The incision was copiously irrigated with normal sterile saline. The plantar excision and wound was carried out creating fresh borders. The incisions x2 were primarily closed using 2-0 Vicryl and 3-0 nylon. Dry sterile dressings were applied using Xeroform, 4 x 4s, Ronal, and a light Coban. Tourniquet was deflated after 30 minutes and prompt response digits 1-5 on the left. The patient tolerated the procedure and the patient will be transferred to the PACU for a brief period of postop monitoring, after which he will be discharged to the floor. He will be followed appropriately while in-house. Liss García DPM SR/rikki , 09:24 PM , 09:34 PM
[2018-06-20] MEDS: Piperacil/Tazo 3.375 GM Premix 50 ML IV.SIG SCH ×2 (04:53→10:32)
[2018-06-20] MEDS: Insulin NovoLOG Aspart Correctional Sugar Inj SQ SCH ×3 (05:22→11:58)
[2018-06-20] MEDS: Magnesium Oxide 400 MG Tablet PO SCH (08:01)
[2018-06-20] MEDS: Senna/Docusate Sodium 8.6/50 MG Tablet PO SCH (08:01)
[2018-06-20] MEDS: Allopurinol 300 MG Tablet PO SCH (08:01)
[2018-06-20] MEDS: lamoTRIgine 100 MG Tablet PO SCH (08:02)
[2018-06-20] MEDS: Loratadine/Pseudoephedrine 12HR Tablet PO SCH (08:02)
[2018-06-20] MEDS: Vancomycin Inj 1,750 MG in Sodium Chlor 0.9% Inj 500 ML IV.SIG SCH ×2 (11:56→14:07)
[2018-06-20] MEDS ORDERED: Pharmacy Ordered Lab Info OTHER SCH (12:45)
--- NOTE | 2018-06-20 13:14 | P.PNPOD ---
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 Doing well with no pain or n/v/f/d/c Physical Exam Vital signs: Vital Signs 06/19/18 15:00 06/19/18 15:15 06/19/18 15:30 Temperature 97.8 F 98.1 F Pulse Rate 77 75 71 Respiratory Rate 14 16 16 Blood Pressure 133/77 148/80 H 150/82 H Pulse Oximetry 94 L 95 95 06/19/18 15:35 06/19/18 20:00 06/20/18 00:00 Temperature 97.6 F 97.7 F Pulse Rate 87 63 Respiratory Rate 18 19 Blood Pressure 133/63 107/61 Pulse Oximetry 95 93 L 93 L 06/20/18 08:00 06/20/18 08:35 06/20/18 11:50 Temperature 97.8 F 97.2 F L 97.7 F Pulse Rate 83 90 90 Respiratory Rate 18 20 18 Blood Pressure 162/84 H 114/59 L 113/63 Pulse Oximetry 95 94 L 93 L Intake & Output 06/19/18 06/20/18 06/20/18 18:59 06:59 18:59 Intake Total 1707.5 / 1707.5 800 / 800 50 / 50 Output Total 300 / 300 Balance 1707.5 / 1707.5 500 / 500 50 / 50 Weight 95.6 kg Intake: IV 667.5 / 667.5 100 / 100 50 / 50 Zosyn 3.375 GM Premix 50 ML @ 150 / 150 100 / 100 50 / 50 100 mls/hr IV.SIG Q6H [facility] Rx#: [id number] Vancomycin Inj 1,750 MG In NS 517.5 / 517.5 Inj 500 ML @ 250 mls/hr IV.SIG Q24H [facility] Rx#:[id number] Oral 540 / 540 700 / 700 Anesthesia Amount 500 / 500 Output: Urine 300 / 300 Other: # Voids 3 2 Date of Last Bowel Movement 06/18/18 Narrative: LLE Intact dressing and no strikethrough. NVS intact. Passive ROM at the digits. Medications and Allergies Active Medications: Active Medications Hydrocodone Bitart/Acetaminophen (Rose 10/325) 1 tab PO Q4H PRN PRN Reason: Acute Pain Last Admin: 09/14/18 07:57 Dose: 1 tab Allopurinol (Zyloprim) 300 mg PO DAILY [facility] Last Admin: 06/20/18 08:01 Dose: 300 mg Bisacodyl (Dulcolax Supp) 10 mg RECTAL DAILY PRN PRN Reason: SEVERE CONSITIPATION Citalopram Hydrobromide (Celexa) 40 mg PO DAILY [facility] Last Admin: 06/20/18 08:02 Dose: 40 mg Dextroamphetamine Sulfate (Dextrostat) 20 mg PO BID [facility] Last Admin: 06/20/18 08:01 Dose: 20 mg Dextrose (D50w Vial) 50 ml IV.PUSH UNSCH PRN PRN Reason: PER HYPOGLYCEMIA PROTOCOL Fluticasone Propionate (Flonase Nasal [place]) 2 spray EACH NARE DAILY [facility] Last Admin: 06/20/18 10:31 Dose: 2 spray Glucagon (Glucagon Inj) 1 mg OTHER PRN PRN PRN Reason: for Hypoglycemia Protocol Piperacillin/Tazobactam/Dextrose (Zosyn 3.375 Gm Premix) 50 mls @ 100 mls/hr IV.SIG Q6H [facility] Last Infusion: 06/20/18 11:33 Dose: Infused Pharmacy Profile Note (Vancomycin Consult Pharmacy) 0 mls @ 0 mls/hr OTHER UNSCH [facility] Vancomycin HCl 1,750 mg/ (Sodium Chloride) 517.5 mls @ 250 mls/hr IV.SIG Q24H [facility] Last Admin: 06/20/18 11:56 Dose: 250 mls/hr Insulin Aspart (Novolog Insulin [facility] Sugar Inj) 0 unit SQ Q6HR [facility]; Protocol Last Admin: 06/20/18 11:58 Dose: Not Given Lactulose (Lactulose Liq) 30 ml PO DAILY PRN PRN Reason: SEVERE CONSITIPATION Lamotrigine (Lamictal) 150 mg PO DAILY [facility] Last Admin: 06/20/18 08:02 Dose: 150 mg Loratadine/Pseudoephedrine Sulfate (Claritin-D 12 Hour Allergy & Congestion) 1 tab PO DAILY [facility] Last Admin: 06/20/18 08:02 Dose: 1 tab Magnesium Oxide (Mag-Ox) 400 mg PO DAILY [facility] Last Admin: 06/20/18 08:01 Dose: 400 mg Miscellaneous Information ([facility] [place] [facility] Ordered Lab Info) 1 each OTHER ONCE [facility] Miscellaneous Information ([facility] [place] Nursing Information) 0 each OTHER UNSCH PRN PRN Reason: SEE LABEL COMMENTS Stop: 06/20/18 15:03 Naloxone HCl (Narcan Inj) 0.4 mg IV.PUSH UNSCH PRN PRN Reason: SEE LABEL COMMENTS Ondansetron HCl (Zofran Odt) 4 mg PO Q6H PRN PRN Reason: NAUSEA OR VOMITING Ondansetron HCl (Zofran Inj) 4 mg IV.PUSH Q6H PRN PRN Reason: NAUSEA OR VOMITING Pioglitazone HCl (Actos) 15 mg PO DAILY [facility] Last Admin: 06/20/18 08:01 Dose: 15 mg Senna/Docusate Sodium (Merary-Colace) 1 tab PO BID [facility] Last Admin: 06/20/18 08:01 Dose: 1 tab Sennosides (Senokot) 17.2 mg PO Q12H PRN PRN Reason: Moderate Constipation Sodium Chloride (Ns Flush) 2 ml IV.FLUSH BID [facility] Last Admin: 06/20/18 08:02 Dose: 2 ml Sodium Chloride (Ns Flush) 2 ml IV.FLUSH PRN PRN PRN Reason: FLUSH AFTER USING IV ACCESS Temazepam (Restoril) 15 mg PO HS PRN PRN Reason: INSOMNIA Last Admin: 06/18/18 21:00 Dose: 15 mg Allergies Allergy/AdvReac Type Severity Reaction Status Date / Time No Known Allergies Allergy Uncoded 04/24/17 12:18 Home Medications Medication Instructions Recorded Confirmed Type allopurinol 300 mg PO DAILY 06/17/18 06/17/18 History citalopram 40 mg PO DAILY 06/17/18 06/17/18 History dextroamphetamine 20 mg PO BID 06/17/18 06/17/18 History fluticasone 2 spray INTRANASAL DAILY 06/17/18 06/17/18 History hydrocodone-acetaminophen 1 tab PO Q4-6H PRN MDD 8 06/17/18 06/17/18 History lamotrigine 150 mg PO DAILY 06/17/18 06/17/18 History loratadine-pseudoephedrine 1 tab PO DAILY 06/17/18 06/17/18 History [Claritin-D 24 Hour] magnesium oxide 400 mg PO DAILY 06/17/18 06/17/18 History metformin 1,000 mg PO DAILY 06/17/18 06/17/18 History pioglitazone 15 mg PO DAILY 06/17/18 06/17/18 History sumatriptan succinate 2 tab PO DAILY PRN MDD 8 tab 06/17/18 06/17/18 History Results - Labs CBC & Chem 7: 06/17/18 21:48 06/20/18 05:58 Laboratory Results - last 24 hr 06/19/18 06/19/18 06/19/18 15:04 16:41 23:40 BUN Creatinine Estimated GFR POC Glucose 112 H 166 H 126 H 06/20/18 06/20/18 06/20/18 04:53 05:58 11:55 BUN 16 Creatinine 1.31 H Estimated GFR 54 L POC Glucose 124 H 156 H Microbiology 06/19/18 15:00 Wound - Toe Gram Stain - Final 06/19/18 15:00 Wound - Toe Wound Culture - Preliminary No growth in 24 hours 06/19/18 15:00 Wound - Toe Gram Stain - Final 06/19/18 15:00 Wound - Toe Wound Culture - Preliminary No growth in 24 hours 06/19/18 15:00 Wound - Toe Acid Fast Bacilli Smear - Final No acid fast bacilli seen 06/19/18 15:00 Wound - Toe Acid Fast Bacilli Smear - Final No acid fast bacilli seen 06/17/18 21:48 Blood - Peripheral Aerobic Blood Culture - Preliminary No growth in 3 days 06/17/18 21:48 Blood - Peripheral Anaerobic Blood Culture - Preliminary No growth in 3 days 06/17/18 21:48 Blood - Peripheral Aerobic Blood Culture - Preliminary No growth in 3 days 06/17/18 21:48 Blood - Peripheral Anaerobic Blood Culture - Preliminary No growth in 3 days 06/19/18 15:00 Wound - Toe Fungal Smear - Final No fungal elements seen 06/19/18 15:00 Wound - Toe Fungal Smear - Final No fungal elements seen - Imaging Impressions Foot X-Ray 06/19/18 00:00 CONCLUSION: Post surgical changes second metatarsal head. Assessment and Plan - Assessment (1) Cellulitis Code(s): L03.90 - Cellulitis, unspecified Status: Acute (2) Diabetes Code(s): E11.9 - Type 2 diabetes mellitus without complications Status: Acute (3) Ulcer of foot Code(s): L97.509 - Non-pressure chronic ulcer of other part of unspecified foot with unspecified severity Status: Acute - Plan Pending bone biopsy result for determination of oral vs IV abx. If OM then plan for 6 weeks IV abx. Planning d/c OK to WB with post op shoe. (1) Cellulitis Qualifiers: Site of cellulitis: extremity Site of cellulitis of extremity: lower extremity Laterality: left Qualified Code(s): L03.116 - Cellulitis of left lower limb (3) Ulcer of foot Qualifiers: Laterality: left Non-pressure ulcer stage: with fat layer exposed Qualified Code(s): L97.522 - Non-pressure chronic ulcer of other part of left foot with fat layer exposed
--- NOTE | 2018-06-20 15:00 | P.DS ---
<Doreen Obrien W - Last Filed: 06/20/18 14:56> Date of admission: 06/17/18 22:51 Primary care physician: Katherin Greene MD Attending physician on discharge: Héctor Vallejo Anticipated date of discharge: 06/20/18 Brief History from admission: The patient is a 67 year old male who presents to the [facility] emergency department with a history of a week ago noticing some redness and soreness to the left foot. The patient reports that he had an infection in the left foot that required surgical debridement with Dr. Heaton in April. The patient reports that he followed up with Dr. Heaton, a local mission analyst yesterday regarding the new symptoms. He reports that an area was debrided along the ball of the foot and the patient was started onto antibiotic. The patient reports that he was not able to get the antibiotic prescription filled until this morning. He reports that he started on the 2 antibiotic prescriptions, however he does not know the names. He reports that the area of redness and swelling was spreading up into the leg, therefore he called Dr. Heaton back again today and was told to come to the emergency department. He denies having any known fevers or chills. He denies having any nausea, vomiting, or diarrhea. On review of systems otherwise, the patient denies having any worsening cough, congestion, neck pain, chest pain, worsening shortness of breath (h/o pulmonary fibrosis), abdominal pain,urinary symptoms, or neurologic symptoms. Of note was in hospital for infection to foot and required surgical debridement and IV antibiotics last year . The ulcer on the foot began after patient stepped on something. Podiatry recomends starting IV antibiotics and MRI of foot. DS: Diagnosis - Discharge Diagnosis (1) Ulcer of foot Status: Acute DS: Medications - Discharge Medications Prescriptions: hydrocodone-acetaminophen 1 tab PO Q4HR PRN #18 tab MDD 8 PRN Reason: Acute Pain DS: Summary Hospital Course: Ulceration of Left foot with cellulitis - continue IV vancomycin (with pharmacy to dose) and zoysn - consult podiatry ER discussed case with them and they are already aware of patient - Foot MRI 06/18/18 1. Soft tissue area of nonenhancement in the plantar aspect of the foot between the second and third MTP joints as described above. The area of nonenhancement extends to the base of the second proximal phalangeal bone which does show some enhancement but no marrow replacement to confirm osteomyelitis. There is also impressive edema and enhancement within the plantar musculature and the second flexor tendon sheath raises the possibility of more proximal migration of the infection. - s/p 1. 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 2. Left second digit bone biopsy second metatarsal. with Dr. García 06/19/18 - surgical cultrues and pathology pending - Dr. Vallejo discussed the case with Dr. García - plan to DC on PO clindamyacin with follow up with Dr. Heaton next week for follow up and results of surgical cultures and pathology Diabetes - renal function slightly elevated and was normal on last blood test in past will hold metformin - accu checks ACHS with sliding scale coverage Pulmonary fibrosis - Per patient he is not on home medications for Pulmonary fibrosis - reports breathing is a baseline - recommend patient follow up with PCP and possible real estate sales agent as an outpatient after DC - Chest X-Ray 06/17/18 21:33 reveals: Pulmonary fibrosis appears slightly worse over the past year. No definite acute infiltrate demonstrated. Patient follow with Dr. Huertas outpatient Patient also has chronic depression and ADHD: continue home meds DVT prophylaxis with SCDs - Time Spent with Patient Total time spent providing and/or coordinating discharge services: Greater than 30 minutes - Quality: VTE Deep Vein Thrombosis/Pulmonary Embolism Present on Admission: No Exam Vital signs: Vital Signs 06/19/18 15:00 06/19/18 15:15 06/19/18 15:30 Temperature 97.8 F 98.1 F Pulse Rate 77 75 71 Respiratory Rate 14 16 16 Blood Pressure 133/77 148/80 H 150/82 H Pulse Oximetry 94 L 95 95 06/19/18 15:35 06/19/18 20:00 06/20/18 00:00 Temperature 97.6 F 97.7 F Pulse Rate 87 63 Respiratory Rate 18 19 Blood Pressure 133/63 107/61 Pulse Oximetry 95 93 L 93 L 06/20/18 08:00 06/20/18 08:35 06/20/18 11:50 Temperature 97.8 F 97.2 F L 97.7 F Pulse Rate 83 90 90 Respiratory Rate 18 20 18 Blood Pressure 162/84 H 114/59 L 113/63 Pulse Oximetry 95 94 L 93 L 06/20/18 13:48 Temperature Pulse Rate Respiratory Rate 20 Blood Pressure Pulse Oximetry Intake & Output 06/19/18 06/20/18 06/20/18 18:59 06:59 18:59 Intake Total 1707.5 / 1707.5 800 / 800 50 / 50 Output Total 300 / 300 Balance 1707.5 / 1707.5 500 / 500 50 / 50 Weight 95.6 kg Intake: IV 667.5 / 667.5 100 / 100 50 / 50 Zosyn 3.375 GM Premix 50 ML @ 150 / 150 100 / 100 50 / 50 100 mls/hr IV.SIG Q6H [facility] Rx#: [id number] Vancomycin Inj 1,750 MG In NS 517.5 / 517.5 Inj 500 ML @ 250 mls/hr IV.SIG Q24H [facility] Rx#:[id number] Oral 540 / 540 700 / 700 Anesthesia Amount 500 / 500 Output: Urine 300 / 300 Other: # Voids 3 2 Date of Last Bowel Movement 06/18/18 06/20/18 Narrative: General: 67 year old male patient, in no acute distress SKIN: Warm and dry. post-op dressing dry and intact HEAD: Atraumatic. Normocephalic. CARDIOVASCULAR: Regular rate and rhythm. RESPIRATORY: No accessory muscle use. Clear to auscultation. Breath sounds equal bilaterally. GASTROINTESTINAL: Abdomen soft, non-tender, nondistended. MUSCULOSKELETAL: Extremities without clubbing, cyanosis, trace edema. NEUROLOGICAL: Awake and alert. Five out of 5 muscle strength in the arms and legs. Normal speech. Results Procedures completed during hospitalization: s/p 1. 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 2. Left second digit bone biopsy second metatarsal. with Dr. García 06/19/18 Labs on day of discharge: Labs from last 24 hours 06/20/18 06/20/18 06/20/18 11:55 05:58 04:53 BUN 16 Creatinine 1.31 H Estimated GFR 54 L POC Glucose 156 H 124 H 06/19/18 06/19/18 06/19/18 23:40 16:41 15:04 BUN Creatinine Estimated GFR POC Glucose 126 H 166 H 112 H Preliminary micro results at discharge 06/19/18 15:00 Wound Culture - Preliminary Wound - Toe No growth in 24 hours 06/19/18 15:00 Wound Culture - Preliminary Wound - Toe No growth in 24 hours 06/17/18 21:48 Aerobic Blood Culture - Preliminary Blood - Peripheral No growth in 3 days Anaerobic Blood Culture - Preliminary No growth in 3 days 06/17/18 21:48 Aerobic Blood Culture - Preliminary Blood - Peripheral No growth in 3 days Anaerobic Blood Culture - Preliminary No growth in 3 days - Impressions ITS Impressions Chest X-Ray 06/17/18 21:33 CONCLUSION: Pulmonary fibrosis appears slightly worse over the past year. No definite acute infiltrate demonstrated. Foot MRI 06/18/18 22:12 CONCLUSION: 1. Soft tissue area of nonenhancement in the plantar aspect of the foot between the second and third MTP joints as described above. The area of nonenhancement extends to the base of the second proximal phalangeal bone which does show some enhancement but no marrow replacement to confirm osteomyelitis. There is also impressive edema and enhancement within the plantar musculature and the second flexor tendon sheath raises the possibility of more proximal migration of the infection. Foot X-Ray 06/19/18 00:00 CONCLUSION: Post surgical changes second metatarsal head. <Héctor Vallejo - Last Filed: 07/12/18 16:07> Date of admission: 06/17/18 22:51 Primary care physician: Katherin Greene MD DS: Diagnosis - Discharge Diagnosis (1) Ulcer of foot Status: Acute DS: Summary Hospital Course: Patient examined. Assessment and plan formulated with Doreen Obrien PA-C. I agree with the above. - Time Spent with Patient Total time spent providing and/or coordinating discharge services: Results Labs on day of discharge: Preliminary micro results at discharge 06/19/18 15:00 Fungal Culture - Preliminary Wound - Toe No growth in 3 weeks 06/19/18 15:00 Mycobacterial Culture - Preliminary Wound - Toe No growth in 3 weeks 06/19/18 15:00 Fungal Culture - Preliminary Wound - Toe No growth in 3 weeks 06/19/18 15:00 Mycobacterial Culture - Preliminary Wound - Toe No growth in 3 weeks - Impressions ITS Impressions Chest X-Ray 06/17/18 21:33 CONCLUSION: Pulmonary fibrosis appears slightly worse over the past year. No definite acute infiltrate demonstrated. Foot MRI 06/18/18 22:12 CONCLUSION: 1. Soft tissue area of nonenhancement in the plantar aspect of the foot between the second and third MTP joints as described above. The area of nonenhancement extends to the base of the second proximal phalangeal bone which does show some enhancement but no marrow replacement to confirm osteomyelitis. There is also impressive edema and enhancement within the plantar musculature and the second flexor tendon sheath raises the possibility of more proximal migration of the infection. Foot X-Ray 06/19/18 00:00 CONCLUSION: Post surgical changes second metatarsal head. Discharge Plan - Discharge Order Discharge Orders: Discharge Order (Routine); Ordered 06/20/18 Ordered By: Doreen Obrien - Discharge Details Anticipated Discharge Date: 06/20/18 - Physicians Team Primary Care Provider: Katherin Greene Attending Provider: Héctor Vallejo Other Providers: Delisa Gallegos DPM
[2018-06-21] MEDS ORDERED: Pharmacy Ordered Lab Info OTHER ONE (12:45)
== END 2018-06-20 18:00 | disposition home or self-care (01) ==
LOC: NEPE 18:30 → NEDA 22:51 → N07 06-18 00:16
PROVIDERS: ADMIT Hospitalist; ATTEND Hospitalist